=== PATIENT | female | born 1960 | race Caucasian/White ===

== ENCOUNTER 2017-01-04 11:25 | Day surgery (SDC) | payer OTHER ==
[2016-12-30 16:09] VITALS: BMI 21.5
[~2017-01-04 11:25] MED LIST: LACTATED RINGERS 1,000 ML IV SCH
[2017-01-04 11:43] VITALS: TEMP 98
[2017-01-04] MEDS ORDERED: PROPOFOL 10 MG/ML 20 ML VIAL IV ONE (12:00)
--- NOTE | 2017-01-04 12:35 | P.PCN ---
Date of Procedure: 01/04/17 Procedure(s) Performed: Procedure: Colonoscopy and polypectomy. Preoperative diagnosis: Blood in the stools. Postoperative diagnosis: Cecal and distal sigmoid polyps snared but no large polyps or cancer. Mild sigmoid diverticulosis with no evidence of acute diverticulitis or strictures. Low-grade internal hemorrhoids without bleeding at the time of this exam. Preparation: HalfLytely prep. Sedation: Was provided by anesthesia. Brief clinical history: The patient is a 57-year-old female who is referred for this evaluation because of history of abdominal pains and dark stools that tested occult blood positive. The patient has family history of colon cancer in her father and her maternal grandmother. This would be her first colonoscopy. Procedure: With the patient on her left lateral decubitus position and after informed consent and adequate sedation, the perianal area was inspected and it did not show any fissures or fistulas. There were no masses felt on digital rectal examination. The Olympus CFQ 160L video colonoscope was then inserted in the rectum in the usual fashion and advanced to the cecum. There was a small flat polyp in the cecum which was snared and retrieved by suction and there was a small polyp in the distal sigmoid that was also snared and retrieved by suction but there were no large polyps or cancer. The mucosa appeared healthy. Several diverticular orifices were seen scattered in the sigmoid with no evidence of acute diverticulitis or strictures. In the retroflex view in the rectum, low-grade internal hemorrhoids were noted but there was no bleeding. The patient tolerated the procedure well. Plan: The patient was reassured. Discussed dietary measures. Will await pathology results. I anticipate repeating her colonoscopy in 3-5 years. As far as her abdominal pains, dark stools and finding or blood in her stools, it is possible that we could be dealing with an upper GI source of these complaints and findings. Consideration can be given for an upper endoscopy based on her course. She will discuss that with you.
[2017-01-04 12:55] VITALS: BP 145/86; PULSE 91; RESP 18
== END 2017-01-04 13:11 | disposition home or self-care (01) ==
LOC: ORWHC2ENDO 11:25
DX: D12.0 Benign neoplasm of cecum (principal); D12.5 Benign neoplasm of sigmoid colon; K57.30 Diverticulosis of large intestine without perforation or abscess without bleeding; K64.8 Other hemorrhoids; K92.1 Melena; K21.9 Gastro-esophageal reflux disease without esophagitis; I10 Essential (primary) hypertension; I27.2 Other secondary pulmonary hypertension; Z79.899 Other long term (current) drug therapy; Z72.0 Tobacco use
CPT/HCPCS: 88305; 45385; J2704

== ENCOUNTER → 2020-06-07 | Outpatient (CLI) | payer OTHER ==
--- NOTE | 2020-06-07 15:55 | CT ---
EXAMINATION TYPE: CT chest wo con DATE OF EXAM: 06/07/2020 COMPARISON: None HISTORY: chest pain CT DLP: 429 mGycm, Automated exposure control for dose reduction was used. CONTRAST: None TECHNIQUE: Axial images were obtained at 1 mm thick sections at 10 mm intervals. This will limit po rtions of the examination which may not be visualized within the [id number]. Images were obtained in the prone and supine views. FINDINGS: Portion of the thyroid visualized is normal. Tiny densities in the periphery of lateral right apex. Series 8 image 6. A 0.8 cm punctate nodularities within right middle lobe near the major fissure. Series 4 image 24. No enlarged mediastinal or hilar adenopathy is evident. The ascending aorta diameter at the level o f the main pulmonary artery is 3.7 cm. The main pulmonary artery diameter at the bifurcation is 2.9 cm. Dense coronary artery calcification is present. Limited CT sections are obtained through the upper abdomen. Abdomen is essentially unremarkable. No suspicious changes between prone and supine imaging is evident. Portion of the upper abdomen withi n the [id number] is normal. IMPRESSIONS: 1. Couple of punctate densities within the right lung. Follow-up standard CT chest could be performed in 6 months.
== END | disposition home or self-care (01) ==
LOC: RADCTMAIN 09:59
PROVIDERS: ATTEND Internal Medicine
DX: J98.4 Other disorders of lung (principal)
CPT/HCPCS: 71250

== ENCOUNTER → 2020-06-10 | Outpatient (CLI) | payer OTHER ==
[2020-06-10 16:41] LABS: HCT 42.5 % (34.0-46.0); HGB 13.5 gm/dL (11.4-16.0); MCH 31.9 pg (25.0-35.0); MCHC 31.8 g/dL (31.0-37.0); MCV 100.1 fL (80.0-100.0); Mean Platelet Volume 7.1; Platelet Count 218 k/uL (150-450); RBC 4.25 m/uL (3.80-5.40); RDW 12.8 % (11.5-15.5); WBC 6.8 k/uL (3.8-10.6)
[2020-06-11 01:24] LABS: African American GFR (CKD) 109.1 (60.0-200.0); Albumin 4.7 g/dL (3.80-4.90); Albumin/Globulin Ratio 2.14 (1.60-3.17); Anion Gap 11.7 mmol/L (4.00-12.00); BUN/Creat Ratio 17.14 Ratio (12.00-20.00); Calcium 9.4 mg/dL (8.7-10.3); Carbon Dioxide 23.3 mmol/L (21.6-31.8); Globulin 2.2 g/dL (1.6-3.3); Non-African American GFR(CKD) 94.2 (60.0-200.0); Potassium 3.9 mmol/L (3.5-5.5); Total Bilirubin 0.4 mg/dL (0.2-1.2); Total Protein 6.9 g/dL (6.2-8.2)
[2020-06-11 01:32] LABS: T4, Free (Free Thyroxine) 1.2 ng/dL (0.80-1.80)
== END | disposition home or self-care (01) ==
LOC: LABWHC1 15:33
PROVIDERS: ATTEND Internal Medicine
DX: I10 Essential (primary) hypertension (principal); R42 Dizziness and giddiness; R07.9 Chest pain, unspecified
CPT/HCPCS: 36415; 80053; 84439; 84443; 85027

== ENCOUNTER 2020-07-29 11:53 | Day surgery (SDC) | payer OTHER ==
[2020-07-26 15:55] VITALS: BMI 20.2
[2020-07-29] MEDS ORDERED: LACTATED RINGERS 1,000 ML IV SCH (12:05)
[2020-07-29 12:12] VITALS: TEMP 98
[2020-07-29] MEDS ORDERED: LIDOCAINE 1% (10MG/ML) FOR IV START INTRADERMA ONE (12:12)
[2020-07-29] MEDS ORDERED: LACTATED RINGERS 1,000 ML IV ONE (12:12)
[2020-07-29] MEDS ORDERED: LIDOCAINE 1% INJ 10MG/ML (20 ML MDV) ONE (14:00)
[2020-07-29] MEDS ORDERED: PROPOFOL 10 MG/ML 20 ML VIAL IV ONE (14:00)
[2020-07-29] MEDS ORDERED: SODIUM CHLORIDE 0.9% 500 ML 500 ML IV ONE (14:32)
--- NOTE | 2020-07-29 14:42 | P.PCN ---
Date of Procedure: 07/29/20 Description of Procedure: Brief history: Patient is a 60-year-old female presenting for outpatient EGD and colonoscopy for evaluation of dysphagia and history of polyps of the colon. Last colonoscopy was performed in 2017 with polypectomy. She does have a family history of colon cancer in her father. She reports symptoms of epigastric abdominal pain, burping and dysphagia improved on omeprazole therapy, however she does not want to take the medication regularly due to side effects. Procedure performed: Esophagogastroduodenoscopy with biopsy Colonoscopy with polypectomy Estimated blood loss: Minimal. Preoperative diagnosis: Dysphagia, personal history of colon polyps, family history of colon cancer, last colonoscopy 2016 Anesthesia: MAC Procedure: After informed consent was obtained from the patient was brought into the endoscopy unit and IV sedation was administered by anesthesia under continuous monitoring. Initially upper endoscopy was done. The Olympus GF 190 video endoscope was inserted into the mouth and esophagus intubated without any difficulty and was gradually advanced into the stomach and duodenum and carefully examined. The bulb and second part of the duodenum appeared normal. The scope was then withdrawn into the stomach adequately insufflated with air and upon careful examination the antrum and body, cardia and fundus appeared normal, except for a superficial 3 mm nonbleeding antral ulcer which was biopsied. The procedure also taken of the antrum and body with mild superficial erythema suggestive of mild gastritis noted. The scope was then withdrawn into the esophagus. The GE junction was located at 40 cm to the incisors and biopsied. It appeared regular with no erythema erosions or ulcerations. Rest of the esophagus appeared normal. Patient tolerated the procedure well. At this time the patient continued to remain sedation. Initial digital rectal examination was normal. Olympus CF 190 video colonoscope was then inserted into the rectum and gradually advanced to the cecum without any difficulty. Careful examination was performed as the scope was gradually being withdrawn. The prep was excellent. The cecum, ascending colon, transverse colon, descending colon, sigmoid colon and rectum appeared normal. Diminutive polyps measuring 2-3 mm in size removed from the cecum 2, ascending 1, transverse colon 1 and sigmoid colon 1 with cold forcep polypectomy. A few scattered diverticula noted in the sigmoid colon. Low-grade internal hemorrhoids noted. Retroflexion was performed in the rectum and no lesions were noted. Patient tolerated the procedure well. Impression: 1. Superficial nonbleeding antral ulcer, biopsied. Mild gastritis. Biopsies of the duodenum, antrum body and GE junction. 2. 5 diminutive polyps removed with cold forcep polypectomy from the cecum 2, ascending colon, transverse colon and sigmoid colon. Mild sigmoid diverticulosis. Low-grade internal hemorrhoids. Recommendations: Findings of this examination were discussed with the patient as well as her [id number]. Okay to resume diet. Okay to resume medications. Await pathology from biopsies and polypectomy. Patient will be given a 2 month prescription for omeprazole therapy. Would recommend repeat colonoscopy in 3 years for high-risk colon polyps, pending pathology from polypectomies.
[2020-07-29 14:49] VITALS: RESP 20
[2020-07-29 15:10] VITALS: BP 127/81; PULSE 93
== END 2020-07-29 15:17 | disposition home or self-care (01) ==
LOC: ORWHC2ENDO 11:53
PROVIDERS: ATTEND Internal Medicine
DX: Z12.11 Encounter for screening for malignant neoplasm of colon (principal); D12.2 Benign neoplasm of ascending colon; D12.3 Benign neoplasm of transverse colon; D12.5 Benign neoplasm of sigmoid colon; K63.5 Polyp of colon; K29.50 Unspecified chronic gastritis without bleeding; K57.30 Diverticulosis of large intestine without perforation or abscess without bleeding; K25.7 Chronic gastric ulcer without hemorrhage or perforation; K64.8 Other hemorrhoids; F17.210 Nicotine dependence, cigarettes, uncomplicated; Z86.010 Personal history of colon polyps; Z80.0 Family history of malignant neoplasm of digestive organs; Z98.890 Other specified postprocedural states; I10 Essential (primary) hypertension; I73.9 Peripheral vascular disease, unspecified; Z79.899 Other long term (current) drug therapy
CPT/HCPCS: 88305; 45380; 43239; J2001; J2704

== ENCOUNTER → 2020-12-31 | Outpatient (CLI) | payer OTHER ==
--- NOTE | 2020-12-31 12:39 | CT ---
EXAMINATION TYPE: CT ChestAbdPelvis w con DATE OF EXAM: 12/31/2020 COMPARISON: Outside CT abdomen and pelvis December 10, 2020 HISTORY: generalized pain, Malignant neoplasm of peritoneum CT DLP: 1072 mGycm. Automated Exposure Control for Dose Reduction was Utilized. CONTRAST: CT scan of the thorax, abdomen and pelvis is performed with IV Contrast, patient injected with 100 mL of Isovue 300. FINDINGS: LUNGS: The lungs are grossly clear, there is no concerning parenchymal mass or nodule identified. T here is no pleural effusion or pneumothorax seen. The tracheobronchial tree is patent. No suspicious focal consolidation. MEDIASTINUM: There are no greater than 1 cm hilar or mediastinal lymph nodes. No cardiomegaly or pe ricardial effusion is seen. Severe three-vessel coronary calcification is present. OTHER: No additional significant abnormality is seen. LIVER/GB: Gallbladder redemonstrates distended margins. PANCREAS: No significant abnormality is seen. SPLEEN: Somewhat small spleen redemonstrated. ADRENALS: No significant abnormality is seen. KIDNEYS: Left kidney shows areas of cortical diminished enhancement and volume loss on current study. BOWEL: The oral contrast reaches level of the hepatic flexure. No abnormal small or large bowel dilat ation. GENITAL ORGANS: Persistent anteverted uterus extending to right of midline. Scattered bilateral pelvi c phleboliths. LYMPH NODES: No greater than 1cm abdominal or pelvic lymph nodes are appreciated. OSSEOUS STRUCTURES: Underlying levoconvex scoliosis redemonstrated centered at L3 level persistent se paris disc space narrowing L2-L3 and L3-L4 levels. Fthm-mn-[id number] multilevel anterior and lateral sp urring. OTHER: Small amount of abdominal and pelvic ascites is redemonstrated slightly more prominent than pr ior study. There is persistent irregular soft tissue thickening in the left midabdomen with local mas s effect and some adjacent nondependent fluid consistent with biopsy proven peritoneal carcinomatosis . Severe calcified change of aorta extends into branch vessels. IMPRESSION: Small amount of intra-abdominal and pelvic ascites slightly more prominent from outside C T. Redemonstration no peritoneal carcinomatosis with local mass effect. No bowel obstruction. No new or acute findings otherwise seen.
== END ==
LOC: RADCTMAIN 10:26
PROVIDERS: ATTEND Internal Medicine Hematology & Oncology
DX: R18.8 Other ascites (principal)
CPT/HCPCS: 71260; 74177; Q9967

== ENCOUNTER 2021-01-15 09:09 | Day surgery (SDC) | payer OTHER ==
[2021-01-15 10:01] VITALS: TEMP 98.1
[2021-01-15 10:15] LABS: Mean Platelet Volume 7.6; Platelet Count 182 k/uL (150-450)
[2021-01-15 10:20] LABS: INR 0.9 (<1.2); Prothrombin Time 10.1 sec (9.0-12.0)
[2021-01-15 10:51] VITALS: RESP 18
[2021-01-15 11:54] VITALS: BP 131/74; PULSE 92
--- NOTE | 2021-01-15 12:03 | US ---
Ultrasound-guided paracentesis. DATE OF EXAM: 01/15/2021 CLINICAL HISTORY: Ascites The procedure was discussed with the patient. The risks, complications, benefits, and alternatives we re discussed and any questions were answered. Informed consent was obtained. The patient was placed s upine on the ultrasound table and prepped and draped in the usual sterile fashion. All elements of maximal barrier technique were utilized. Under ultrasound guidance, access into the right lower quadrant was obtained, via the paracentesis catheter system and direct ultrasound guidanc e. Approximately 3.8 liters of straw-colored fluid was removed. The patient was stable throughout the pr ocedure and remained stable upon discharge from Department of Radiology. IMPRESSION: Successful paracentesis under ultrasound guidance.
== END 2021-01-15 11:55 | disposition home or self-care (01) ==
LOC: RADPROMAIN 09:09
PROVIDERS: ATTEND Internal Medicine Hematology & Oncology
DX: R18.8 Other ascites (principal)
CPT/HCPCS: 36415; 49083; 85049; 85610

== ENCOUNTER 2021-02-06 10:56 | Day surgery (SDC) | payer OTHER ==
[2021-02-06 12:18] LABS: INR 0.9 (<1.2); Prothrombin Time 10.1 sec (9.0-12.0)
[2021-02-06 12:22] LABS: Mean Platelet Volume 7.9; Platelet Count 136 k/uL (150-450)
[2021-02-06 13:22] VITALS: RESP 18; TEMP 98.6
--- NOTE | 2021-02-06 14:01 | US ---
EXAMINATION TYPE: US venous doppler duplex LE LT DATE OF EXAM: 02/06/2021 1:09 PM COMPARISON: NONE CLINICAL HISTORY: M79.662, R22.42. Swelling left ankle, history of intraperitoneal neoplasm. SIDE PERFORMED: Left TECHNIQUE: The lower extremity deep venous system is examined utilizing real time linear array sonog anayeli with graded compression, doppler sonography and color-flow sonography. VESSELS IMAGED: Common Femoral Vein Deep Femoral Vein Greater Saphenous Vein * Femoral Vein Popliteal Vein Small Saphenous Vein * Proximal Calf Veins (* superficial vessels) Grayscale, color doppler, spectral doppler imaging performed of the deep veins of the left lower extr emity. There is normal flow, compressibility, vascular waveforms. Left Leg: Negative for DVT Results called to Demetrio at 's office at time of exam IMPRESSION: No ultrasound evidence for acute DVT in the left lower extremity.
[2021-02-06 14:11] VITALS: BP 170/76; PULSE 90
--- NOTE | 2021-02-06 15:31 | US ---
EXAMINATION TYPE: US paracentesis abd w/image DATE OF EXAM: 02/06/2021 COMPARISON: NONE HISTORY: Ascites. PROCEDURE: Maximal barrier technique was utilized. The skin overlying a suitable pocket of fluid was localized with ultrasound and the overlying skin was prepped and draped. Ultrasound was utilized with sterile technique. Lidocaine was used for local anesthesia and a skin trang made with a scalpel. Catheter was advanced under direct ultrasound guidance into a suitable pocket of fluid and approximately 5 liters of serous fluid were removed. Catheter was withdrawn and hemostasis achieved. There is no immediate complication; the patient is discharged in stable condition. IMPRESSION: STATUS POST ULTRASOUND GUIDED PARACENTESIS FOR PALLIATION OF ASCITES. THIS PROCEDURE WA S PERFORMED BY THE UNDERSIGNED.
== END 2021-02-06 14:25 | disposition home or self-care (01) ==
LOC: RADPROMAIN 10:56
PROVIDERS: ATTEND Internal Medicine Hematology & Oncology
DX: R18.8 Other ascites (principal)
CPT/HCPCS: 36415; 49083; 85049; 85610

== ENCOUNTER → 2021-02-06 | Outpatient (CLI) | payer OTHER | END | disposition home or self-care (01) | DX: Z53.9 Procedure and treatment not carried out, unspecified reason (principal) ==

== ENCOUNTER 2021-02-14 12:16 | Day surgery (SDC) | payer OTHER ==
[2021-02-14 12:45] LABS: Mean Platelet Volume 7.6; Platelet Count 215 k/uL (150-450)
[2021-02-14 13:14] LABS: INR 0.9 (<1.2)
[2021-02-14 14:06] VITALS: RESP 18
[2021-02-14 15:58] VITALS: BP 128/74; PULSE 86
--- NOTE | 2021-02-14 17:58 | US ---
EXAMINATION TYPE: US paracentesis abd w/image DATE OF EXAM: 02/14/2021 CLINICAL HISTORY: Ascites COMPARISON: 02/06/2021 FURNACE HELPER: Dr. iDana Yanez PROCEDURE: Preprocedure preliminary ultrasound imaging demonstrates large volume ascites. The procedure was discussed with the patient. The risks, complications, benefits, and alternatives we re discussed and any questions were answered. Informed consent was obtained. The patient was placed s upine on the ultrasound table and prepped and draped in the usual sterile fashion. All elements of maximal barrier technique were utilized. Under ultrasound guidance, access into the right lower quadrant was obtained with a 5 Hebrew one-step centesis catheter. Approximately 4.4 liters of clear serous fluid was removed. Catheter was removed and sterile bandage was applied. The patient was stable throughout the procedure and remained stable upon discharge from Department of Radiology. IMPRESSION: Successful ultrasound-guided paracentesis, with removal of 4.4 liters of clear serous fluid.
== END 2021-02-14 15:15 | disposition home or self-care (01) ==
LOC: RADPROMAIN 12:16
PROVIDERS: ATTEND Internal Medicine Hematology & Oncology
DX: R18.8 Other ascites (principal)
CPT/HCPCS: 36415; 49083; 85049; 85610

== ENCOUNTER → 2021-02-24 | Outpatient (CLI) | payer OTHER ==
[2021-02-24 12:03] LABS: African American GFR (CKD) >90 (>60 ml/min/1.73 sqM); Blood Urea Nitrogen 12 mg/dL (7-17); Non-African American GFR(CKD) >90 (>60 ml/min/1.73 sqM)
--- NOTE | 2021-02-24 14:22 | CT ---
EXAMINATION TYPE: CT abdomen pelvis w con DATE OF EXAM: 02/24/2021 HISTORY: Malignant neoplasm of peritoneum, unspecific CT DLP: 553.60mGycm Automated Exposure Control for Dose Reduction was Utilized. CONTRAST: CT scan of the abdomen and pelvis is performed with oral and with IV Contrast, patient injected with 100 ml mL of Isovue 300. COMPARISON: CT December 31, 2020 FINDINGS: LUNG BASES: Coronary artery calcification redemonstrated. LIVER/GB: Surrounding ascites now present. PANCREAS: There is new curvilinear density near the pancreatic tail suspect sutures axial image 29. P rior visualized pancreatic tail bowel shows cut off with heterogeneity. Correlate clinically if there is been interval surgery. Cannot exclude nonenhancement or new small peritoneal mass axial image 32 series 3 at this level though this is less prominent on delayed phased images. SPLEEN: Somewhat small spleen redemonstrated. ADRENALS: No significant abnormality is seen. KIDNEYS: Left kidney redemonstrates areas of cortical thinning and volume loss on current study. BOWEL: The oral contrast reaches level of the proximal transverse colon. No abnormal small or large b owel dilatation. Evaluation of bowel suboptimal due to incomplete opacification of distal and left-si ded bowel loops GENITAL ORGANS: Persistent anteverted uterus extending to right of midline. Scattered bilateral pelvi c phleboliths. New surrounding ascites. Peritoneal thickening and nodular densities in the lateral pe lvis for reference axial image 70 are suspicious. LYMPH NODES: No new greater than 1cm abdominal or pelvic lymph nodes are appreciated. OSSEOUS STRUCTURES: Underlying levoconvex scoliosis redemonstrated centered at L3 level. Persistent s evere disc space narrowing right L2-L3 and L3-L4 levels. Gvfq-gx-ccssnvdh multilevel anterior and lat eral spurring. OTHER: Increasing amount of abdominal and pelvic ascites is redemonstrated . There is persistent irre gular soft tissue thickening in the left midabdomen with local mass effect has slightly more confluen t appearance image 38 series 3, mimicking unopacified bowel loop corresponding to biopsy-proven perit nj carcinomatosis. Severe calcified change of aorta extends into branch vessels. IMPRESSION: Worsening intra-abdominal and pelvic ascites Redemonstration of known peritoneal carcinom atosis with local mass effect. Probable involvement in the pelvic cavity. No bowel obstruction. No ob vious significant change except worsening ascites from most recent CT.
== END | disposition home or self-care (01) ==
LOC: RADCTMAIN 11:21
PROVIDERS: ATTEND Internal Medicine Hematology & Oncology
DX: C48.2 Malignant neoplasm of peritoneum, unspecified (principal); R18.8 Other ascites
CPT/HCPCS: 82565; 84520; 74177; 36415; Q9967

== ENCOUNTER 2021-03-07 11:06 | Day surgery (SDC) | payer OTHER ==
[2021-03-06 14:53] VITALS: BMI 21.2
[~2021-03-07 11:06] MED LIST changes: +DEXAMETHASONE SOD PHOSPHATE 4 MG/ML 1 ML VIAL IV ONE; +HYDROmorphone 0.5 MG/0.5 ML SYRINGE IVP PRN; +LIDOCAINE 1% (10MG/ML) FOR IV START INTRADERMA PRN; +MIDAZOLAM 2 MG/2 ML VIAL IV PRN; +ONDANSETRON 4 MG/2 ML VIAL IVP ONE
--- NOTE | 2021-03-07 15:19 | P.GSHP ---
History of Present Illness H&P Date: 03/07/21 Chief Complaint: Peritoneal cancer 61-year-old female here today for Port-A-Cath placement. Patient being treated with chemotherapy for peritoneal carcinoma. She has frequent paracentesis performed. She underwent 1 earlier this morning. No shortness of breath currently. Past Medical History Past Medical History: Cancer, GERD/Reflux, GI Bleed, Hyperlipidemia, Hypertension Additional Past Medical History / Comment(s): Abdominal pain & weight loss recently, pain under sternum into back, hx diverticulosis, GI bleed 3 yrs ago, hx colon polyps, spots on lungs - monitoring, PERITONEAL CANCER, chemother apy started 01/29. History of Any Multi-Drug Resistant Organisms: None Reported Past Surgical History: Orthopedic Surgery Additional Past Surgical History / Comment(s): Right Carotid Endarterectomy, bilateral knee arthroscopy, right shoulder surgery, Colonoscopy. Past Anesthesia/Blood Transfusion Reactions: No Reported Reaction Past Psychological History: Anxiety Smoking Status: Current every day smoker Past Alcohol Use History: Rare Additional Past Alcohol Use History / Comment(s): Smoker, 1ppd for 40 years. Cutting back, down to 1/2 PPD. Past Drug Use History: None Reported - Past Family History Father Family Medical History: Cancer Additional Family Medical History / Comment(s): Colon cancer. Medications and Allergies Home Medications Medication Instructions Recorded Confirmed Type Metoprolol Succinate (ER) [Toprol 25 mg PO QAM 07/26/20 03/06/21 History Xl] OLANZapine [ZyPREXA] 5 mg PO HS 01/09/21 03/06/21 History Omeprazole 1 tab PO QAM 01/09/21 03/06/21 History Ondansetron [Zofran] 4 mg PO Q12HR PRN 01/09/21 03/06/21 History Calcium Carbonate [Calcium] 600 mg PO DAILY 01/17/21 03/06/21 History LORazepam [Ativan] 0.5 mg PO TID PRN 01/17/21 03/06/21 History Docusate [Colace] 100 mg PO BID PRN 02/06/21 03/06/21 History HYDROcodone/APAP 5-325MG [[place] 1 tab PO Q6HR PRN 02/06/21 03/06/21 History 5-325] Lactulose 10 gm PO BID 02/06/21 03/06/21 History Varenicline [Chantix Starter Pack] 0.5 mg PO DIRECTED 02/06/21 03/06/21 History Allergies Allergy/AdvReac Type Severity Reaction Status Date / Time No Known Allergies Allergy Verified 03/06/21 14:41 Surgical - Exam Physical exam: General: Thin elderly female in no distress HEENT: Normocephalic, sclerae nonicteric Abdomen: Nontender, nondistended Extremities: No edema Neuro: Alert and oriented Assessment and Plan (1) Peritoneal carcinoma Narrative/Plan: Will proceed with Port-A-Cath placement at this time. Risks of bleeding, infection, DVT, pneumothorax, catheter malfunction, anesthesia related complications were discussed. The patient understands and wishes to proceed. Current Visit: Yes Status: Acute Code(s): C48.2 - MALIGNANT NEOPLASM OF PERITONEUM, UNSPECIFIED SNOMED Code(s): 699467861
[2021-03-07] MEDS ORDERED: fentaNYL (PF) 50 MCG/ML 2 ML AMP ONE (15:25)
[2021-03-07] MEDS ORDERED: LIDOCAINE 1% INJ 10MG/ML (20 ML MDV) ONE (15:25)
[2021-03-07] MEDS ORDERED: SODIUM CHLORIDE 0.9% 100 ML BAG ONE (15:25)
[2021-03-07] MEDS ORDERED: MIDAZOLAM 2 MG/2 ML VIAL ONE (15:25)
[2021-03-07] MEDS ORDERED: PROPOFOL 10 MG/ML 20 ML VIAL IV ONE (15:25)
[2021-03-07] MEDS ORDERED: ceFAZolin 1,000 MG VIAL ONE (15:25)
[2021-03-07] MEDS ORDERED: LIDOCAINE 1% INJ 10MG/ML (20 ML MDV) SQ ONE ×2 (15:45)
[2021-03-07] MEDS ORDERED: NALOXONE 0.4 MG/ML 1 ML VIAL IV PRN (16:09)
--- NOTE | 2021-03-07 16:11 | P.OP ---
Date of Procedure: 03/07/21 Procedure(s) Performed: PREOPERATIVE DIAGNOSIS: Peritoneal carcinoma POSTOPERATIVE DIAGNOSIS: Same PROCEDURE: Port-A-Cath placement with fluoroscopic and ultrasound guidance SURGEON: Claudia EBL: Minimal ANESTHESIA: Sedation COMPLICATIONS: None OPERATIVE PROCEDURE: Patient was brought and placed on the operative table in the supine position. The patient was sedated per anesthesia that time. The chest and neck were prepped and draped in usual sterile fashion. The ultrasound probe was used to identify the location of the right internal jugular vein. The skin was localized with lidocaine. The Seldinger needle was advanced into the IJ under ultrasound guidance. The wire was advanced through the needle under fluoroscopic guidance into the superior vena cava. A port pocket was created in the right infraclavicular location. The catheter was tunneled from the wire entrance site to the port pocket. The port was then connected to the catheter. The dilator introducer was threaded over the guidewire. The guidewire and dilator were then removed. The catheter was advanced through the introducer and introducer was then removed. The tip was seen to be in the right atrial junction via fluoroscopy. A picture of the radiograph showing the tip at the radial digital junction was taken. Port was flushed with both saline and a Hep- Lock solution. There was good flow both in and out of the port. The port was sutured in underlying tissues using 3-0 silk sutures. The subcutaneous tissues were reapproximated using 3-0 Vicryl sutures and the skin at both locations using 4-0 Monocryl sutures. Skin glue and sterile dressings then applied. DISPOSITION: Stable to recovery room
[2021-03-07 16:21] VITALS: TEMP 98.5
--- NOTE | 2021-03-07 16:21 | FL ---
Fluoroscopy History: Pain 3 sec fl-1 image
--- NOTE | 2021-03-07 16:30 | XR ---
EXAMINATION TYPE: XR chest 1V confirm line [facility] DATE OF EXAM: 03/07/2021 HISTORY: Post Port A Cath insertion. COMPARISON: None. TECHNIQUE: Single view of the chest is submitted. FINDINGS: Sided Port-A-Cath is demonstrated with its distal tip overlying the SVC. No evidence for pn eumothorax. Demonstrated are scattered senescent parenchymal change. There is no evidence for focal infiltrate. The heart is stable. Hilar and mediastinal structures are within normal limits. Degenerative changes are seen of the dorsal spine. IMPRESSION: 1. Chronic changes without evidence for acute pulmonary disease.
[2021-03-07 16:39] VITALS: RESP 16
[2021-03-07 17:05] VITALS: PULSE 80
[2021-03-07 17:06] VITALS: BP 138/85
== END 2021-03-07 17:18 | disposition home or self-care (01) ==
LOC: OR 11:06
PROVIDERS: ATTEND Surgery
DX: C48.2 Malignant neoplasm of peritoneum, unspecified (principal); K21.9 Gastro-esophageal reflux disease without esophagitis; E78.5 Hyperlipidemia, unspecified; I10 Essential (primary) hypertension; Z92.21 Personal history of antineoplastic chemotherapy; Z86.010 Personal history of colon polyps; F41.9 Anxiety disorder, unspecified; F17.210 Nicotine dependence, cigarettes, uncomplicated; Z79.899 Other long term (current) drug therapy
CPT/HCPCS: 77001; 36561; C1788; J2250; J1100; J2405; J0690; J2001; J3010; J1642; J2704

== ENCOUNTER 2021-03-07 11:44 | Day surgery (SDC) | payer OTHER ==
[~2021-03-07 11:44] MED LIST changes: +ACETAMINOPHEN TAB 500 MG TAB PO PRN; -DEXAMETHASONE SOD PHOSPHATE 4 MG/ML 1 ML VIAL IV ONE; +HEPARIN SODIUM,PORCINE/PF 5,000 UNIT/0.5 ML SYRINGE SQ PRN; -HYDROmorphone 0.5 MG/0.5 ML SYRINGE IVP PRN; -LACTATED RINGERS 1,000 ML IV SCH; -LIDOCAINE 1% (10MG/ML) FOR IV START INTRADERMA PRN; -MIDAZOLAM 2 MG/2 ML VIAL IV PRN; -ONDANSETRON 4 MG/2 ML VIAL IVP ONE
[2021-03-07 12:39] LABS: Mean Platelet Volume 7.5; Platelet Count 179 k/uL (150-450)
[2021-03-07 12:47] LABS: INR 0.9 (<1.2)
[2021-03-07 12:59] LABS: Potassium 5.4 mmol/L (3.5-5.1)
[2021-03-07 13:53] VITALS: RESP 18
[2021-03-07] MEDS: ALBUMIN HUMAN 25% 50 ML in EMPTY BAG 1 BAG IVPB SCH ×3 (14:30→15:18)
[2021-03-07 14:47] VITALS: BP 168/100; PULSE 84
--- NOTE | 2021-03-07 16:10 | US ---
EXAMINATION TYPE: US paracentesis abd w/image DATE OF EXAM: 03/07/2021 COMPARISON: NONE HISTORY: Ascites. PROCEDURE: Maximal barrier technique was utilized. The skin overlying a suitable pocket of fluid was localized with ultrasound and the overlying skin was prepped and draped. Ultrasound was utilized with sterile technique. Lidocaine was used for local anesthesia and a skin trang made with a scalpel. Catheter was advanced under direct ultrasound guidance into a suitable pocket of fluid and approximately 4.1 liter s of serous fluid were removed. Catheter was withdrawn and hemostasis achieved. There is no immedia te complication; the patient is discharged in stable condition. IMPRESSION: STATUS POST ULTRASOUND GUIDED PARACENTESIS FOR PALLIATION OF ASCITES. THIS PROCEDURE WA S PERFORMED BY THE UNDERSIGNED.
== END 2021-03-07 15:10 | disposition home or self-care (01) ==
LOC: RADPROMAIN 11:44
PROVIDERS: ATTEND Internal Medicine Hematology & Oncology
DX: R18.8 Other ascites (principal)
CPT/HCPCS: 80051; 85049; 85610; 36415; 49083; P9047

== ENCOUNTER 2021-03-21 13:04 | Day surgery (SDC) | payer OTHER ==
[2021-03-21 13:32] LABS: Mean Platelet Volume 7.8; Platelet Count 224 k/uL (150-450)
[2021-03-21 13:46] LABS: INR 0.9 (<1.2); Prothrombin Time 9.4 sec (9.0-12.0)
[2021-03-21 14:33] VITALS: RESP 18; TEMP 98.1
[2021-03-21 15:49] VITALS: BP 162/78; PULSE 84
--- NOTE | 2021-03-24 08:52 | US ---
Ultrasound-guided paracentesis. DATE OF EXAM: 03/21/2021 CLINICAL HISTORY: Ascites The procedure was discussed with the patient. The risks, complications, benefits, and alternatives we re discussed and any questions were answered. Informed consent was obtained. The patient was placed s upine on the ultrasound table and prepped and draped in the usual sterile fashion. All elements of maximal barrier technique were utilized. Under ultrasound guidance, access into the right lower quadrant was obtained, via the paracentesis catheter system and direct ultrasound guidanc e. Approximately 3.4 liters of straw-colored fluid was removed. The patient was stable throughout the pr ocedure and remained stable upon discharge from Department of Radiology. IMPRESSION: Successful paracentesis under ultrasound guidance.
== END 2021-03-21 15:20 | disposition home or self-care (01) ==
LOC: RADPROMAIN 13:04
PROVIDERS: ATTEND Internal Medicine Hematology & Oncology
DX: R18.8 Other ascites (principal)
CPT/HCPCS: 36415; 49083; 85049; 85610

== ENCOUNTER 2021-04-04 12:52 | Day surgery (SDC) | payer OTHER ==
[2021-04-04 13:41] LABS: Mean Platelet Volume 7.7; Platelet Count 165 k/uL (150-450)
[2021-04-04 13:46] LABS: Prothrombin Time 10.6 sec (9.0-12.0)
[2021-04-04 14:55] VITALS: PULSE 115; RESP 16
[2021-04-04 15:36] VITALS: BP 133/81
--- NOTE | 2021-04-04 16:18 | US ---
EXAMINATION TYPE: US paracentesis abd w/image DATE OF EXAM: 04/04/2021 COMPARISON: NONE HISTORY: Ascites. PROCEDURE: Maximal barrier technique was utilized. The skin overlying a suitable pocket of fluid was localized with ultrasound and the overlying skin was prepped and draped. Ultrasound was utilized with sterile technique. Lidocaine was used for local anesthesia and a skin trang made with a scalpel. Catheter was advanced under direct ultrasound guidance into a suitable pocket of fluid and approximately 43 liters of serous fluid were removed. Catheter was withdrawn and hemostasis achieved. There is no immediat e complication; the patient is discharged in stable condition. IMPRESSION: STATUS POST ULTRASOUND GUIDED PARACENTESIS FOR PALLIATION OF ASCITES. THIS PROCEDURE WA S PERFORMED BY THE UNDERSIGNED.
== END 2021-04-04 15:25 | disposition home or self-care (01) ==
LOC: RADPROMAIN 12:52
PROVIDERS: ATTEND Internal Medicine Hematology & Oncology
DX: R18.8 Other ascites (principal)
CPT/HCPCS: 85049; 85610; 49083; J1642

== ENCOUNTER 2021-04-06 11:56 | Inpatient (IN) | payer OTHER ==
[2021-04-06] MEDS ORDERED: SODIUM CHLORIDE 0.9% 1,000 ML IV STA (12:20)
[2021-04-06] MEDS ORDERED: ONDANSETRON 4 MG/2 ML VIAL IVP STA (12:20)
[2021-04-06] MEDS ORDERED: HYDROmorphone 1 MG/ML 1 ML SYRINGE IVP STA (12:21)
--- NOTE | 2021-04-06 12:41 | ED ---
General Adult HPI - General Chief complaint: Weakness Stated complaint: Not eating/weak Time Seen by Provider: 04/06/21 12:06 Source: patient, RN notes reviewed, old records reviewed Mode of arrival: wheelchair Limitations: no limitations - History of Present Illness Initial comments: 61-year-old female with stage IV atraumatic cancer presenting for evaluation of abdominal pain nausea vomiting and poor appetite. She is currently on chemotherapy, her last treatment was 2 weeks ago. She's been unable to eat any significant amount of food over that time. She was seen at the cancer center and was given IV fluids earlier this week. She is taking Corona at home with only minimal improvement in her pain. She has not had a bowel movement in several days. She was vomiting but vomiting has subsided and poor appetite and nausea persist. Pain is generalized. She has been having paracentesis performed about every 2 weeks. No fever. - Related Data Home Medications Medication Instructions Recorded Confirmed Metoprolol Succinate (ER) [Toprol 25 mg PO QAM 07/26/20 04/04/21 Xl] OLANZapine [ZyPREXA] 5 mg PO HS 01/09/21 04/04/21 Omeprazole 1 tab PO QAM 01/09/21 04/04/21 Ondansetron [Zofran] 4 mg PO Q12HR PRN 01/09/21 04/04/21 Calcium Carbonate [Calcium] 600 mg PO DAILY 01/17/21 04/04/21 Docusate [Colace] 100 mg PO BID PRN 02/06/21 04/04/21 HYDROcodone/APAP 5-325MG [Corona 1 tab PO Q6HR PRN 02/06/21 04/04/21 5-325] Lactulose 10 gm PO BID 02/06/21 04/04/21 ALPRAZolam [Xanax] 0.25 mg PO Q8H PRN 03/21/21 04/04/21 Allergies Allergy/AdvReac Type Severity Reaction Status Date / Time No Known Allergies Allergy Verified 04/06/21 12:02 Review of Systems ROS Statement: Those systems with pertinent positive or pertinent negative responses have been documented in the HPI. ROS Other: All systems not noted in ROS Statement are negative. Past Medical History Past Medical History: Cancer, GERD/Reflux, GI Bleed, Hyperlipidemia, Hypertension Additional Past Medical History / Comment(s): abdominal pain & weight loss recen tly, & pain under sternum into back, diverticulosis, GI bleed 3 yrs ago, hx. colon polyps, spots on lungs-dr. 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, asites History of Any Multi-Drug Resistant Organisms: None Reported Past Surgical History: Orthopedic Surgery Additional Past Surgical History / Comment(s): carotid endarterectomy rt, arthroscopy santos knees, and rt shoulder, colonoscopy, multi paracentesis, mediport insertion Past Anesthesia/Blood Transfusion Reactions: No Reported Reaction Past Psychological History: Anxiety Smoking Status: Current some day smoker Past Alcohol Use History: Occasional Past Drug Use History: None Reported - Past Family History Father Family Medical History: Cancer Additional Family Medical History / Comment(s): colon cancer General Exam Limitations: no limitations General appearance: alert, in no apparent distress Head exam: Present: atraumatic, normocephalic Eye exam: Present: PERRL. Absent: periorbital swelling, periorbital tenderness ENT exam: Present: mucous membranes dry Neck exam: Present: normal inspection. Absent: tenderness, meningismus Respiratory exam: Present: normal lung sounds bilaterally. Absent: respiratory distress, wheezes Cardiovascular Exam: Present: normal rhythm, tachycardia GI/Abdominal exam: Present: soft, distended, tenderness Extremities exam: Present: normal inspection, normal capillary refill. Absent: pedal edema Neurological exam: Present: alert, oriented X3 Skin exam: Present: warm, dry, intact Course Vital Signs 04/06/21 04/06/21 11:58 13:08 Temperature 97.3 F L Pulse Rate 108 H 121 H Respiratory 18 20 Rate Blood Pressure 111/80 96/85 O2 Sat by Pulse 97 92 L Oximetry EKG Findings - EKG Comments: EKG Findings:: EKG: Sinus tachycardia, low voltage, rate of 129, NV interval 132, QRS duration 88, QTC 471, suspect ST segment depression in the lateral precordial leads. No ST segment elevation. Medical Decision Making - Medical Decision Making 61-year-old female with nausea vomiting, poor appetite, abdominal pain, dehydration. Patient has stage IV pancreatic cancer. She has not been eating well for the past 2 weeks. She has tried abnormalities, including hypokalemia, hyponatremia, hypomagnesemia. Lites are replaced the emergency department. She is dehydrated. She has a leukocytosis, uncertain if this is reactive or associated with acute infection. Chest x-ray and urinalysis are pending. She will be admitted for symptom control. Case discussed with Dr. Montoya who will admit. Oncology placed on consult. - Lab Data Result diagrams: 04/06/21 13:00 04/06/21 13:00 Lab Results 04/06/21 04/06/21 04/06/21 Range/Units 13:00 13:00 13:00 WBC 18.1 H (3.8-10.6) k/uL RBC 3.70 L (3.80-5.40) m/uL Hgb 11.8 (11.4-16.0) gm/dL Hct 37.1 (34.0-46.0) % MCV 100.3 H (80.0-100.0) fL MCH 31.9 (25.0-35.0) pg MCHC 31.8 (31.0-37.0) g/dL RDW 17.1 H (11.5-15.5) % Plt Count 192 (150-450) k/uL MPV 7.9 Neutrophils % 93 % Lymphocytes % 2 % Monocytes % 3 % Eosinophils % 0 % Basophils % 0 % Neutrophils # 16.9 H (1.3-7.7) k/uL Lymphocytes # 0.4 L (1.0-4.8) k/uL Monocytes # 0.6 (0-1.0) k/uL Eosinophils # 0.0 (0-0.7) k/uL Basophils # 0.0 (0-0.2) k/uL Anisocytosis Slight Macrocytosis Slight PT 10.7 (9.0-12.0) sec INR 1.0 (<1.2) APTT 22.1 (22.0-30.0) sec Sodium 131 L (137-145) mmol/L Potassium 3.0 L (3.5-5.1) mmol/L Chloride 97 L (98-107) mmol/L Carbon Dioxide 18 L (22-30) mmol/L Anion Gap 16 mmol/L BUN 15 (7-17) mg/dL Creatinine 0.74 (0.52-1.04) mg/dL Est GFR (CKD-EPI)AfAm >90 (>60 ml/min/1.73 sqM) Est GFR (CKD-EPI)NonAf 88 (>60 ml/min/1.73 sqM) Glucose 153 H (74-99) mg/dL Plasma Lactic Acid Robert (0.7-2.0) mmol/L Calcium 7.9 L (8.4-10.2) mg/dL Magnesium 1.5 L (1.6-2.3) mg/dL Total Bilirubin 0.3 (0.2-1.3) mg/dL AST 18 (14-36) U/L ALT 9 (4-34) U/L Alkaline Phosphatase 201 H (38-126) U/L Total Protein 5.1 L (6.3-8.2) g/dL Albumin 2.6 L (3.5-5.0) g/dL 04/06/21 Range/Units 13:00 WBC (3.8-10.6) k/uL RBC (3.80-5.40) m/uL Hgb (11.4-16.0) gm/dL Hct (34.0-46.0) % MCV (80.0-100.0) fL MCH (25.0-35.0) pg MCHC (31.0-37.0) g/dL RDW (11.5-15.5) % Plt Count (150-450) k/uL MPV Neutrophils % % Lymphocytes % % Monocytes % % Eosinophils % % Basophils % % Neutrophils # (1.3-7.7) k/uL Lymphocytes # (1.0-4.8) k/uL Monocytes # (0-1.0) k/uL Eosinophils # (0-0.7) k/uL Basophils # (0-0.2) k/uL Anisocytosis Macrocytosis PT (9.0-12.0) sec INR (<1.2) APTT (22.0-30.0) sec Sodium (137-145) mmol/L Potassium (3.5-5.1) mmol/L Chloride (98-107) mmol/L Carbon Dioxide (22-30) mmol/L Anion Gap mmol/L BUN (7-17) mg/dL Creatinine (0.52-1.04) mg/dL Est GFR (CKD-EPI)AfAm (>60 ml/min/1.73 sqM) Est GFR (CKD-EPI)NonAf (>60 ml/min/1.73 sqM) Glucose (74-99) mg/dL Plasma Lactic Acid Robert 1.2 (0.7-2.0) mmol/L Calcium (8.4-10.2) mg/dL Magnesium (1.6-2.3) mg/dL Total Bilirubin (0.2-1.3) mg/dL AST (14-36) U/L ALT (4-34) U/L Alkaline Phosphatase (38-126) U/L Total Protein (6.3-8.2) g/dL Albumin (3.5-5.0) g/dL Disposition Clinical Impression: Hyponatremia, Hypokalemia, Dehydration, Hypomagnesemia Disposition: ADMITTED IP TO THIS [facility] Condition: Stable Is patient prescribed a controlled substance at d/c from ED?: No Referrals: Oscar Pereira MD [Primary Care Provider] - 1-2 days Decision to Admit Reason: Admit from EC Decision Date: 04/06/21 Decision Time: 14:00
[2021-04-06 13:29] LABS: ALT 9 U/L (4-34); AST 18 U/L (14-36); African American GFR (CKD) >90 (>60 ml/min/1.73 sqM); Albumin 2.6 g/dL (3.5-5.0); Alkaline Phosphatase 201 U/L (38-126); Anion Gap 16 mmol/L; Blood Urea Nitrogen 15 mg/dL (7-17); Calcium 7.9 mg/dL (8.4-10.2); Carbon Dioxide 18 mmol/L (22-30); Chloride 97 mmol/L (98-107); Glucose 153 mg/dL (74-99); Magnesium 1.5 mg/dL (1.6-2.3); Non-African American GFR(CKD) 88 (>60 ml/min/1.73 sqM); Sodium 131 mmol/L (137-145); Total Bilirubin 0.3 mg/dL (0.2-1.3); Total Protein 5.1 g/dL (6.3-8.2)
[2021-04-06 13:31] LABS: Partial Thromboplastin Time 22.1 sec (22.0-30.0); Prothrombin Time 10.7 sec (9.0-12.0)
[2021-04-06 13:35] LABS: Anisocytosis Slight; Basophils % (A) 0 %; Eosinophils % (A) 0 %; HCT 37.1 % (34.0-46.0); HGB 11.8 gm/dL (11.4-16.0); Lymphocytes # (A) 0.4 k/uL (1.0-4.8); Lymphocytes % (A) 2 %; MCH 31.9 pg (25.0-35.0); MCHC 31.8 g/dL (31.0-37.0); MCV 100.3 fL (80.0-100.0); Macrocytosis Slight; Mean Platelet Volume 7.9; Monocytes # (A) 0.6 k/uL (0-1.0); Monocytes % (A) 3 %; Neutrophils # (A) 16.9 k/uL (1.3-7.7); Neutrophils % (A) 93 %; Platelet Count 192 k/uL (150-450); RDW 17.1 % (11.5-15.5); WBC 18.1 k/uL (3.8-10.6)
[2021-04-06] MEDS ORDERED: NALOXONE 0.4 MG/ML 1 ML VIAL IV PRN (13:54)
[2021-04-06] MEDS ORDERED: HYDROmorphone 0.5 MG/0.5 ML SYRINGE IVP PRN (13:54)
[2021-04-06] MEDS ORDERED: ACETAMINOPHEN TAB 325 MG TAB PO PRN (13:54)
[2021-04-06] MEDS: POTASSIUM CHLORIDE 10 MEQ in WATER FOR INJECTION 1 100ML.BAG IVPB SCH ×4 (14:40→20:26)
[2021-04-06] MEDS: MAGNESIUM SULFATE-D5W PMX 1 GM in DEXTROSE/WATER 1 100ML.BAG IVPB SCH ×2 (14:40→15:47)
--- NOTE | 2021-04-06 14:51 | XR ---
EXAMINATION TYPE: XR chest 2V DATE OF EXAM: 04/06/2021 COMPARISON: 03/07/2021 HISTORY: Line placement Weakness TECHNIQUE: FINDINGS: Heart and mediastinum are normal. Lungs are clear. Diaphragm is normal. There is right cent ral venous catheter with tip in the superior vena cava. There are chest leads. Bony thorax is intact. There is slight widening of the left AC joint space. There is old left humeral neck fracture. IMPRESSION: No active cardiopulmonary disease. Normal heart. No change.
[2021-04-06] MEDS ORDERED: D5-0.9% NACL WITH KCL 20 MEQ/L 1,000 ML IV SCH (15:00)
[2021-04-06] MEDS ORDERED: ONDANSETRON 4 MG TAB PO PRN (15:22)
[2021-04-06] MEDS ORDERED: ALPRAZolam 0.25 MG TAB PO PRN (15:22)
[2021-04-06] MEDS ORDERED: HYDROcodone/APAP 5-325MG 1 EACH TAB PO PRN (15:24)
[2021-04-06] MEDS ORDERED: Magnesium Replacement Protocol 1 EACH MISC MISCELLANE PRN (15:25)
[2021-04-06] MEDS ORDERED: TEMAZEPAM 15 MG CAP PO PRN (15:25)
[2021-04-06] MEDS ORDERED: Potassium Replacement Protocol 1 EACH MISC MISCELLANE PRN (15:25)
[2021-04-06 16:28] LABS: ALT 7 U/L (4-34); AST 17 U/L (14-36); African American GFR (CKD) >90 (>60 ml/min/1.73 sqM); Albumin 2.4 g/dL (3.5-5.0); Alkaline Phosphatase 183 U/L (38-126); Anion Gap 13 mmol/L; Blood Urea Nitrogen 15 mg/dL (7-17); Calcium 7.4 mg/dL (8.4-10.2); Carbon Dioxide 19 mmol/L (22-30); Chloride 98 mmol/L (98-107); Globulin 2.4 g/dL; Glucose 141 mg/dL (74-99); Non-African American GFR(CKD) >90 (>60 ml/min/1.73 sqM); Potassium 3.2 mmol/L (3.5-5.1); Sodium 130 mmol/L (137-145); Total Bilirubin 0.2 mg/dL (0.2-1.3); Total Protein 4.8 g/dL (6.3-8.2)
--- NOTE | 2021-04-06 17:12 | HP ---
HISTORY AND PHYSICAL DATE OF SERVICE: 04/06/2021 CHIEF COMPLAINTS: Weakness and inability to eat. HISTORY OF PRESENT ILLNESS: This 61-year-old woman with a past medical history of multiple medical problems including pancreatic cancer, GERD, hypertension, hyperlipidemia, being followed by Dr. Toure in the outpatient setting is receiving chemotherapy. The patient has received 3 cycles of chemotherapy. After the chemotherapy last time the patient became extremely sick, unable to keep anything down. The patient got progressively weak and emaciated and the family is debating for the continuation of the chemotherapy. The patient was taken to the ER with complaints of significant weakness. The patient is seen in the Cancer Center, given IV fluids earlier this week. The patient does not have a bowel movement for the last couple of days. The patient was found to have sodium 139, potassium 3. Patient may be dehydrated. White count elevated to 18. Patient admitted for further evaluation and treatment. There is no history of fever, rigors. No headache. loss of consciousness or seizures. The patient is complaining of severe pain in the back also diffusely. PAST MEDICAL HISTORY: History of GERD, history of hypertension, hyperlipidemia, history of abdominal pain, history of anxiety. MEDICATIONS: Medications prior to admission include home medications are Zofran, omeprazole, Zyprexa, Toprol-XL, [place], Xanax. ALLERGIES: None. FAMILY HISTORY: History of colon cancer in the family. SOCIAL HISTORY: History of alcohol intake and continued smoking. REVIEW OF SYSTEMS: ENT No history of diminished hearing or vision. CARDIOVASCULAR No angina or palpitations. RESPIRATORY As mentioned earlier. GI As mentioned earlier. No dysuria or hematuria. NERVOUS No numbness or weakness. ALLERGY/IMMUNOLOGY No asthma or hayfever. MUSCULOSKELETAL As mentioned earlier. HEMATOLOGY/ONCOLOGY As mentioned earlier. ENDOCRINE No history of diabetes or hypothyroidism. CONSTITUTIONAL As mentioned earlier. DERMATOLOGY Negative. RHEUMATOLOGY Negative, PSYCHIATRY As mentioned earlier. PHYSICAL EXAMINATION: Pulse 107, blood pressure 120/86, respiration 18, temperature 97.9, pulse ox 94% on room air. HEENT: Conjunctivae normal. Oral mucosa dry. NECK: No jugular venous distention. No lymph node enlargement. CARDIOVASCULAR: S1, S2, muffled. No S3, no S4, RESPIRATORY: Diminished breath sounds at the bases. A few scattered rhonchi. ABDOMEN: Soft. Mild diffuse distention. Mild diffuse tenderness also present, especially the left side of the abdomen. No guarding, no rigidity. No mass palpable. LEGS: No edema, no swelling. NERVOUS SYSTEM: Higher functions mentioned earlier. Moves all four limbs. Mild diffuse weakness. LYMPHATICS: No lymph node in neck or axilla. SKIN: No rash. JOINTS: No active deforming arthropathy. LAB: WBC 18.2, hemoglobin 7.8, sodium 130, potassium 3. ASSESSMENT: 1. Stage IV pancreatic cancer with metastases, on chemotherapy. 2. Severe dehydration and weakness. 3. Increased WBC, rule out sepsis. 4. Hypernatremia. 5. Hypokalemia. 6. Hypomagnesemia. 7. Hypoalbuminemia with severe protein calorie malnutrition with body mass index of 18.9. 8. History of gastroesophageal reflux disease. 9. History of gastrointestinal bleed. 10.Hypertension. 11.Hyperlipidemia. 12.History of abdominal pain and weight loss. 13.History of chronic polyps. 14.History of anxiety. 15.History of nicotine dependence, continued, ongoing. 16.FULL CODE. RECOMMENDATIONS AND DISCUSSION: In this 61-year-old woman who presented with multiple complex medical issues, we will monitor the patient closely, continue the current medications, continue symptomatic treatment. Pain management. Otherwise, I would also recommend empiric antibiotics. PT OT evaluation. Consult Dr. Toure. Guarded prognosis because of multiple complex medical issues. Further recommendations to follow. MMODL / IJN: [id number] /
[2021-04-06] MEDS: PANTOPRAZOLE 40 MG TABLET PO SCH (17:57)
[2021-04-06] MEDS: CEFEPIME 2 GM in SODIUM CHLORIDE 0.9% 100 ML IVPB SCH ×2 (17:58→23:40)
[2021-04-06 20:44] LABS: Appearance,Urine Cloudy (Clear); Bilirubin,Urine 1+ (Negative); Blood,Urine Negative (Negative); Color,Urine Yellow; Glucose,Urine (UA) Negative (Negative); Hyaline Casts,Urine 19 /lpf (0-2); Ketones,Urine 2+ (Negative); Leukocyte Esterase,Urine Negative (Negative); Mucus,Urine Few /hpf; Nitrite,Urine Negative (Negative); Protein,Urine 1+ (Negative); RBC,Urine 1 /hpf (0-5); Specific Gravity,Urine 1.025 (1.001-1.035); Squamous Epithelial Cell,Urine 6 /hpf (0-4); WBC,Urine 3 /hpf (0-5)
[2021-04-06] MEDS: HYDROmorphone 1 MG/ML 1 ML SYRINGE IVP PRN (21:38)
[2021-04-06] MEDS: OLANZapine 5 MG TAB PO SCH (21:40)
[2021-04-06] MEDS: 0.9% NACL WITH KCL 40 MEQ/L 1,000 ML IV SCH (22:12)
[2021-04-07] MEDS: HYDROmorphone 1 MG/ML 1 ML SYRINGE IVP PRN ×6 (01:20→23:40)
[2021-04-07 06:30] LABS: Anisocytosis Slight; Basophils % (A) 0 %; Eosinophils % (A) 0 %; HCT 34.2 % (34.0-46.0); HGB 11.1 gm/dL (11.4-16.0); Lymphocytes # (A) 0.6 k/uL (1.0-4.8); Lymphocytes % (A) 5 %; MCH 33.3 pg (25.0-35.0); MCHC 32.5 g/dL (31.0-37.0); MCV 102.4 fL (80.0-100.0); Macrocytosis Moderate; Mean Platelet Volume 8.9; Monocytes # (A) 0.7 k/uL (0-1.0); Monocytes % (A) 6 %; Neutrophils # (A) 10.2 k/uL (1.3-7.7); Neutrophils % (A) 87 %; Platelet Count 162 k/uL (150-450); RBC 3.34 m/uL (3.80-5.40); RDW 17.1 % (11.5-15.5); WBC 11.7 k/uL (3.8-10.6)
[2021-04-07] MEDS: CEFEPIME 2 GM in SODIUM CHLORIDE 0.9% 100 ML IVPB SCH ×3 (08:03→23:28)
[2021-04-07] MEDS: PANTOPRAZOLE 40 MG TABLET PO SCH (08:04)
[2021-04-07] MEDS: ENOXAPARIN 40 MG/0.4 ML SYRINGE SQ SCH (08:04)
[2021-04-07 09:41] LABS: Anion Gap 14.1 mmol/L (4.00-12.00); BUN/Creat Ratio 31.67 Ratio (12.00-20.00); Calcium 7.2 mg/dL (8.7-10.3); Carbon Dioxide 18.9 mmol/L (21.6-31.8); Magnesium 1.7 mg/dL (1.5-2.4); Non-African American GFR(CKD) 98.4 (60.0-200.0); Potassium 3.7 mmol/L (3.5-5.5)
[2021-04-07] MEDS: 0.9% NACL WITH KCL 40 MEQ/L 1,000 ML IV SCH ×2 (11:17→22:20)
[2021-04-07 13:30] VITALS: BMI 18.8
[2021-04-07] MEDS: IOPAMIDOL CONTRAST (ORAL USE) VIAL PO PRN ×2 (14:24→15:20)
--- NOTE | 2021-04-07 16:41 | CT ---
EXAMINATION TYPE: CT abdomen pelvis wo/w con DATE OF EXAM: 04/07/2021 COMPARISON: 02/24/2021 HISTORY: 61-year-old female Left lower quadrant abdominal pain and bilateral flank pain. History of p ancreatic cancer. TECHNIQUE: Contiguous axial scanning of the abdomen and pelvis following before and after administrat ion of 100 ml Isovue 300 IV contrast. Delayed images through the kidneys and coronal/sagittal recons tructions performed. CT DLP: 857.1 mGycm Automated exposure control for dose reduction was used. FINDINGS: Heart normal size without pericardial effusion. Extensive three-vessel coronary artery calcifications are present. Lung bases clear without pleural effusion. Moderate atherosclerotic calcifications lower descending thoracic aorta with ectasia up to 2.9 cm. Tiny hiatal hernia. There may be severe stenoses at the origin of both celiac axis and SMA. Moderate to severe narrowing mid to distal abdominal aorta and aortic bifurcation as well as the proximal right common iliac arter y. Small hypodensities in the periphery of the liver. Borderline gallbladder distention up to 4.1 cm pro bably due to fasting state. Portal venous system is patent. Adrenal glands, right kidney, and spleen within normal limits. The head of the pancreas appears atro phic Left renal artery is no longer well seen and there is delayed enhancement of the left kidney likely d ue to a delay significant renal artery stenosis. Redemonstrated moderate abdominal ascites. Pelvic peritoneal implants with nodular thickening of the peritoneal lining redemonstrated without significant change. Ascending colon is dilated up to 7.9 cm versus 5.7 cm, previously. Descending colon is distended up t o 5.8 cm. The right-sided colon is filled with liquid stool. Circumferential wall thickening of the r ectum is new. Prominent fluid-filled small bowel loops and some possible mildly thickened small bowel loops through out the abdomen and pelvis. Scattered small bowel loops show segmental dilatation up to 4.2 cm in the upper abdomen and also central mid abdomen. Other loops in the right mid abdomen measuring up to 3.6 cm. No pneumatosis or free air is identified. Bladder partially urine distended. Multiple pelvic phlebolith. Bones: Mild to moderate degenerative change at the hips. Hypertrophic facet arthropathy mid to lower lumbar spine. Degenerated S-shaped scoliosis of the lumbar spine. IMPRESSION: 1. AREAS OF MODERATE TO SEVERE ATHEROSCLEROTIC CHANGE IN THE ABDOMINAL AORTA. THERE MAY BE SEVERE HERMELINDA NOSES OF BOTH CELIAC AXIS AND SMA ORIGINS. GIVEN THE NEW SEGMENTAL SMALL BOWEL DISTENTION WITH SCATTE RED WALL THICKENING (DILATATION UP TO 4.2 CM) AND NEW DISTENTION OF THE COLON WELL MEASURING UP TO 7.9 CM, CONSIDER A GENERALIZED ILEUS OR ENTERITIS. CORRELATE WITH LACTIC ACID LEVELS TO EXCLUDE MESE NTERIC ISCHEMIA. NO PNEUMATOSIS OR FREE AIR AT THIS TIME. 2. THE LEFT RENAL ARTERY IS NO LONGER WELL SEEN AND THERE IS DELAYED ENHANCEMENT OF THE LEFT KIDNEY. FINDINGS COMPATIBLE WITH THE DEVELOPMENT OF A SEVERE, CLINICALLY SIGNIFICANT LEFT RENAL ARTERY STENOS IS. 3. KNOWN MODERATE ASCITES AND PELVIC PERITONEAL CARCINOMATOSIS. UNCHANGED SMALL HYPODENSITIES IN THE PERIPHERY OF THE LIVER COULD REFLECT ADDITIONAL PERITONEAL STUDDING. 4. SEVERE ATHEROSCLEROTIC STENOSIS AT THE AORTIC BIFURCATION AND PROXIMAL RIGHT COMMON ILIAC ARTERY.
--- NOTE | 2021-04-07 17:29 | PN ---
PROGRESS NOTE DATE OF SERVICE: 04/07/2021. INTERVAL HISTORY: This 61-year-old woman who was admitted with stage IV pancreatic cancer, suspected to have dehydration, as well as possible sepsis. The patient is being seen and treated symptomatically. CT scan of the abdomen and pelvis has been ordered. No chest pain. No palpitations. No fever. On exam, the patient is extremely emaciated. PHYSICAL EXAMINATION: Alert and oriented x2, pulse 118, blood pressure 106/76, respiration 20, temperature 97.2, pulse ox 98% on room air. Normal neck. Cardiac: S1, S2 muffled. No S3, no S4. Respiratory: Diminished breath sounds at the bases, a few scattered rhonchi. Abdomen: Soft, mild diffuse tenderness. Legs: No edema, no swelling. LAB STUDIES: WBC 11.2, hemoglobin 11.1, sodium 134. ASSESSMENT: 1. Stage II pancreatic cancer with metastasis on chemotherapy. 2. CVD dehydration and weakness present on admission. 3. Increased WBC, possible sepsis present on admission. 4. Hyponatremia. 5. Hypokalemia. 6. Hypomagnesemia. 7. Hypoalbuminemia with severe protein calorie malnutrition with body mass index of 18.9. 8. History of gastroesophageal reflux disease. 9. History of gastrointestinal bleed. 10.Hypertension. 11.Hyperlipidemia. 12.History of abdominal pain, weight loss. 13.History of chronic polyps. 14.History of anxiety. 15.History of nicotine dependence continued ongoing. 16.FULL CODE. RECOMMENDATIONS AND DISCUSSION: I recommend to continue current management and treatment and continue the antibiotics. CT scan abdomen pelvis. Closely follow with Hematology, Oncology. The patient is currently NO CODE. Guarded prognosis. Further recommendations to follow. MMODL / IJN: [id number] /
[2021-04-07] MEDS: chlorproMAZINE 25 MG TAB PO PRN (17:44)
--- NOTE | 2021-04-07 18:15 | P.CONS ---
History of Present Illness - Reason for Consult Consult date: 04/07/21 pancreatic ca Requesting physician: Sylvain Lui - Chief Complaint intractable N,V - History of Present Illness Mrs. Concepcion is a very pleasant 61-year-old female who was initially seen in consult at [facility]. She presented with progressive ab dominal pain, present for about [address] AP revealed a moderate amount of pelvic and a small amount of abdominal ascites as well as peritoneal carcinomatosis. CT-guided biopsy and peritoneal cytology both revealed adenocarcinoma. Seen by GI in July 2020 EGD and colonoscopy polyps but no other findings. Patient was started January 2021 on carboplatin and Taxol chemotherapy, intending to treat malignancy as a PAWN SHOP KEEPER primary. She had [address] cans showing no improvements. Her case was discussed at [facility] tumor board. Both GI as well as PAWN SHOP KEEPER reviewed case. Recommendation was to treat as a potential primary pancreatic malignancy. She was started on modified full fair Lopez with G-CSF, she is status post first cycle 03/26/21. Currently pending Caris studies, PDL 1 and guardant 360 liquid biopsy. Patient presented to the emergency department with complaints of inability to eat since treatment about 2 weeks ago. When she was in the office she said that she had not 84 days, severe vomiting and diarrhea but she had had a bowel movement that was soft that morning, on the last time she vomited was the previous day, she had not been using anti-emetics, she did not ever pain meds the prescription was still sitting at the pharmacy. She was given fluids and supportive meds in the office and felt a little better. She states her last bowel movement was "bile", no bowel movement today, abdominal pain is persistent, cannot lay on her left side, she was vomiting but no vomiting today. Review of Systems 10 point review of systems is negative except as stated in HPI Past Medical History Past Medical History: Cancer, GERD/Reflux, GI Bleed, Hyperlipidemia, Hypertension Additional Past Medical History / Comment(s): abdominal pain & weight loss recently, & pain under sternum into back, diverticulosis, GI bleed 3 yrs ago, hx. colon polyps, spots on lungs-dr. 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, asites History of Any Multi-Drug Resistant Organisms: None Reported Past Surgical History: Orthopedic Surgery Additional Past Surgical History / Comment(s): carotid endarterectomy rt, arthroscopy santos knees, and rt shoulder, colonoscopy, multi paracentesis, mediport insertion Past Anesthesia/Blood Transfusion Reactions: No Reported Reaction Past Psychological History: Anxiety Smoking Status: Current some day smoker Past Alcohol Use History: Occasional Additional Past Alcohol Use History / Comment(s): smoker 1ppd 40 years Past Drug Use History: None Reported - Past Family History Father Family Medical History: Cancer Additional Family Medical History / Comment(s): colon cancer Medications and Allergies Home Medications Medication Instructions Recorded Confirmed Type Metoprolol Succinate (ER) [Toprol 25 mg PO DAILY 07/26/20 04/06/21 History Xl] OLANZapine [ZyPREXA] 5 mg PO HS 01/09/21 04/06/21 History Omeprazole 20 mg PO DAILY 01/09/21 04/06/21 History Ondansetron [Zofran] 4 mg PO Q4H PRN 01/09/21 04/06/21 History HYDROcodone/APAP 5-325MG [[place] 1 tab PO Q6HR PRN 02/06/21 04/06/21 History 5-325] ALPRAZolam [Xanax] 0.5 mg PO TID PRN 04/06/21 04/06/21 History Allergies Allergy/AdvReac Type Severity Reaction Status Date / Time No Known Allergies Allergy Verified 04/06/21 14:23 Physical Exam Vitals: Vital Signs Temp Pulse Pulse Resp BP BP Pulse Ox 04/07/21 04:16 97.8 F 114 H 20 103/75 99 04/06/21 19:30 97.7 F 120 H 20 104/75 97 04/06/21 17:41 98.3 F 112 H 17 95/75 96 04/06/21 15:57 111 H 18 104/79 94 L 04/06/21 14:31 97.9 F 107 H 18 102/86 94 L 04/06/21 13:08 121 H 20 96/85 92 L 04/06/21 11:58 97.3 F L 108 H 18 111/80 97 Intake and Output 04/06/21 04/07/21 04/07/21 22:59 06:59 14:59 Intake Total 500 100 Balance 500 100 Intake: Intake, IV Titration 400 Amount Magnesium Sulfate-D5w Pmx 200 1 gm In Dextrose/Water 1 100ml.bag @ 100 mls/hr IVPB Q1H [facility] Rx#: [id number] Potassium Chloride 10 meq 200 In Water For Injection 1 100ml.bag @ 100 mls/hr IVPB Q1HR [facility] Rx#: [id number] Oral 100 100 Other: # Voids 1 1 Weight 56.245 kg - Constitutional General appearance: cooperative, mild distress, thin - EENT Eyes: anicteric sclerae, EOMI ENT: hearing grossly normal, normal oropharynx - Neck Neck: no lymphadenopathy - Respiratory Respiratory: bilateral: CTA (diminished bases) - Cardiovascular mild tachycardia, 110s Heart sounds: normal: S1, S2 Abnormal Heart Sounds: no systolic murmur, no diastolic murmur, no rub, no S3 Gallop, no S4 Gallop, no click, no other - Gastrointestinal distant bowel sounds General gastrointestinal: distended, soft, tenderness - Integumentary Integumentary: normal - Neurologic Neurologic: CNII-XII intact - Musculoskeletal Musculoskeletal: strength equal bilaterally - Psychiatric Psychiatric: A&O x's 3, appropriate affect, intact judgment & insight Results CBC & Chem 7: 04/07/21 04:46 04/07/21 04:46 Labs: Abnormal Lab Results - Last 24 Hours (Table) 04/06/21 04/06/21 04/06/21 Range/Units 13:00 13:00 13:00 WBC 18.1 H (3.8-10.6) k/uL RBC 3.70 L (3.80-5.40) m/uL Hgb (11.4-16.0) gm/dL MCV 100.3 H (80.0-100.0) fL RDW 17.1 H (11.5-15.5) % Neutrophils # 16.9 H (1.3-7.7) k/uL Lymphocytes # 0.4 L (1.0-4.8) k/uL Sodium 131 L (137-145) mmol/L Potassium 3.0 L (3.5-5.1) mmol/L Chloride 97 L (98-107) mmol/L Carbon Dioxide 18 L (22-30) mmol/L Glucose 153 H (74-99) mg/dL Calcium 7.9 L (8.4-10.2) mg/dL Magnesium 1.5 L (1.6-2.3) mg/dL Alkaline Phosphatase 201 H (38-126) U/L Total Protein 5.1 L (6.3-8.2) g/dL Albumin 2.6 L (3.5-5.0) g/dL Urine Appearance Cloudy H (Clear) Urine Protein 1+ H (Negative) Urine Ketones 2+ H (Negative) Urine Bilirubin 1+ H (Negative) Ur Squamous Epith Cells 6 H (0-4) /hpf Hyaline Casts 19 H (0-2) /lpf Urine Mucus Few H (None) /hpf 04/06/21 04/07/21 Range/Units 15:45 04:46 WBC 11.7 H (3.8-10.6) k/uL RBC 3.34 L (3.80-5.40) m/uL Hgb 11.1 L (11.4-16.0) gm/dL MCV 102.4 H (80.0-100.0) fL RDW 17.1 H (11.5-15.5) % Neutrophils # 10.2 H (1.3-7.7) k/uL Lymphocytes # 0.6 L (1.0-4.8) k/uL Sodium 130 L (137-145) mmol/L Potassium 3.2 L (3.5-5.1) mmol/L Chloride (98-107) mmol/L Carbon Dioxide 19 L (22-30) mmol/L Glucose 141 H (74-99) mg/dL Calcium 7.4 L (8.4-10.2) mg/dL Magnesium (1.6-2.3) mg/dL Alkaline Phosphatase 183 H (38-126) U/L Total Protein 4.8 L (6.3-8.2) g/dL Albumin 2.4 L (3.5-5.0) g/dL Urine Appearance (Clear) Urine Protein (Negative) Urine Ketones (Negative) Urine Bilirubin (Negative) Ur Squamous Epith Cells (0-4) /hpf Hyaline Casts (0-2) /lpf Urine Mucus (None) /hpf CT scan - abdomen: report reviewed CT scan - pelvis: report reviewed Assessment and Plan (1) Intractable nausea and vomiting Current Visit: Yes Status: Acute Priority: High Code(s): R11.2 - NAUSEA WITH VOMITING, UNSPECIFIED SNOMED Code(s): 483784841 (2) Abdominal pain Current Visit: Yes Status: Acute Priority: High Code(s): R10.9 - UNSPECIFIED ABDOMINAL PAIN SNOMED Code(s): 00379157 (3) Pancreatic cancer Current Visit: Yes Status: Acute Code(s): C25.9 - MALIGNANT NEOPLASM OF PANCREAS, UNSPECIFIED SNOMED Code(s): 078277110 (4) Peritoneal carcinoma Current Visit: Yes Status: Acute Code(s): C48.2 - MALIGNANT NEOPLASM OF PERITONEUM, UNSPECIFIED SNOMED Code(s): 177600595 Plan: Patient has pain medications for abdominal pain. CT of the abdomen and pelvis with and without contrast was performed. Those results came in by the end of the day. There is distention on the right and left side of the colon, some thickening. Surgery has been consulted. Patient has been made nothing by mouth. Malignancy of unknown primary. Patient was treated initially for PAWN SHOP KEEPER malignancy, no improvements after 3 cycles. She is status post first cycle of treatment for pancreatic primary. Her CBC is stable. Due for 2nd cycle this week. Treatment will be on hold until her current condition is managed. Intractable hiccups: Thorazine ordered. Discussed case with RN. Plan for NG tube if patient begins vomiting or progressive abdominal pain or distention.
[2021-04-07] MEDS: ONDANSETRON 4 MG/2 ML VIAL IVP PRN (19:17)
[2021-04-07] MEDS: OLANZapine 5 MG TAB PO SCH (22:20)
[2021-04-08] MEDS ORDERED: SODIUM CHLORIDE 0.9% 500 ML 500 ML IV ONE (06:26)
[2021-04-08] MEDS: HYDROmorphone 1 MG/ML 1 ML SYRINGE IVP PRN ×4 (06:31→20:26)
[2021-04-08] MEDS: PANTOPRAZOLE 40 MG TABLET PO SCH (08:26)
[2021-04-08] MEDS: CEFEPIME 2 GM in SODIUM CHLORIDE 0.9% 100 ML IVPB SCH (09:05)
[2021-04-08] MEDS: ENOXAPARIN 40 MG/0.4 ML SYRINGE SQ SCH (09:06)
[2021-04-08 09:22] LABS: Anisocytosis Slight; Basophils % (A) 0 %; Eosinophils % (A) 0 %; HCT 31.5 % (34.0-46.0); HGB 10.5 gm/dL (11.4-16.0); Lymphocytes # (A) 0.4 k/uL (1.0-4.8); Lymphocytes % (A) 4 %; MCH 33.6 pg (25.0-35.0); MCHC 33.4 g/dL (31.0-37.0); MCV 100.5 fL (80.0-100.0); Macrocytosis Slight; Mean Platelet Volume 8.1; Monocytes # (A) 0.6 k/uL (0-1.0); Monocytes % (A) 6 %; Neutrophils # (A) 8.3 k/uL (1.3-7.7); Neutrophils % (A) 88 %; Platelet Count 153 k/uL (150-450); RBC 3.13 m/uL (3.80-5.40); RDW 16.7 % (11.5-15.5); WBC 9.4 k/uL (3.8-10.6)
[2021-04-08 09:41] LABS: ALT 10 U/L (4-34); AST 24 U/L (14-36); African American GFR (CKD) >90 (>60 ml/min/1.73 sqM); Albumin 2.4 g/dL (3.5-5.0); Alkaline Phosphatase 128 U/L (38-126); Anion Gap 8 mmol/L; Blood Urea Nitrogen 14 mg/dL (7-17); Calcium 7.5 mg/dL (8.4-10.2); Carbon Dioxide 22 mmol/L (22-30); Chloride 103 mmol/L (98-107); Globulin 2.4 g/dL; Glucose 111 mg/dL (74-99); Magnesium 1.7 mg/dL (1.6-2.3); Non-African American GFR(CKD) >90 (>60 ml/min/1.73 sqM); Potassium 3.5 mmol/L (3.5-5.1); Sodium 133 mmol/L (137-145); Total Bilirubin 0.2 mg/dL (0.2-1.3); Total Protein 4.8 g/dL (6.3-8.2)
--- NOTE | 2021-04-08 12:46 | P.GSCN ---
History of Present Illness Consult date: 04/08/21 Reason for Consult: Abdominal pain History of present illness: 61-year-old female known to our service from recently placed Port-A-Cath. Bertha avery was diagnosed with peritoneal carcinomatosis. Exact source is not known at present. She is undergoing chemotherapy. Presents to the hospital complaining of weakness, bloating, abdominal pain. Has intermittent liquid stools. Last liquid stool yesterday evening. She had a CAT scan showing small and large bowel dilation. There is air distended at the rectal vault suggesting ileus rather than obstruction. She does feel better today. She has weekly paracentesis performed for symptomatic ascites. No vomiting today. Some belching. She is thirsty. Lactic acid normal. CAT scan also showed significant atherosclerosis of the mesenteric vasculature. Review of Systems The patient denies any acute changes in vision or hearing, no dysphagia or odynophagia, no chest pain or shortness of breath, no dysuria or hematuria, no headache, no runny nose, no rectal bleeding or melena, no unexplained weight loss Past Medical History Past Medical History: Cancer, GERD/Reflux, GI Bleed, Hyperlipidemia, Hypertension Additional Past Medical History / Comment(s): abdominal pain & weight loss recently, & pain under sternum into back, diverticulosis, GI bleed 3 yrs ago, hx. colon polyps, spots on lungs-dr. 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, asites History of Any Multi-Drug Resistant Organisms: None Reported Past Surgical History: Orthopedic Surgery Additional Past Surgical History / Comment(s): carotid endarterectomy rt, arthroscopy santos knees, and rt shoulder, colonoscopy, multi paracentesis, medipo rt insertion Past Anesthesia/Blood Transfusion Reactions: No Reported Reaction Past Psychological History: Anxiety Smoking Status: Current some day smoker Past Alcohol Use History: Occasional Additional Past Alcohol Use History / Comment(s): smoker 1ppd 40 years Past Drug Use History: None Reported - Past Family History Father Family Medical History: Cancer Additional Family Medical History / Comment(s): colon cancer Medications and Allergies Home Medications Medication Instructions Recorded Confirmed Type Metoprolol Succinate (ER) [Toprol 25 mg PO DAILY 07/26/20 04/06/21 History Xl] OLANZapine [ZyPREXA] 5 mg PO HS 01/09/21 04/06/21 History Omeprazole 20 mg PO DAILY 01/09/21 04/06/21 History Ondansetron [Zofran] 4 mg PO Q4H PRN 01/09/21 04/06/21 History HYDROcodone/APAP 5-325MG [[place] 1 tab PO Q6HR PRN 02/06/21 04/06/21 History 5-325] ALPRAZolam [Xanax] 0.5 mg PO TID PRN 04/06/21 04/06/21 History Allergies Allergy/AdvReac Type Severity Reaction Status Date / Time No Known Allergies Allergy Verified 04/06/21 14:23 Surgical - Exam Vital Signs Temp Pulse Resp BP Pulse Ox 97.3 F L 108 H 18 111/80 97 04/06/21 11:58 04/06/21 11:58 04/06/21 11:58 04/06/21 11:58 04/06/21 11:58 Physical exam: General: Somewhat malnourished appearing HEENT: Normocephalic, sclerae nonicteric Abdomen: Mild diffuse tenderness, moderate distention Extremities: No edema Neuro: Alert and oriented Results - Labs 04/08/21 08:49 04/08/21 08:49 Abnormal Lab Results - Last 24 Hours (Table) 04/08/21 04/08/21 Range/Units 08:49 08:49 RBC 3.13 L (3.80-5.40) m/uL Hgb 10.5 L (11.4-16.0) gm/dL Hct 31.5 L (34.0-46.0) % MCV 100.5 H (80.0-100.0) fL RDW 16.7 H (11.5-15.5) % Neutrophils # 8.3 H (1.3-7.7) k/uL Lymphocytes # 0.4 L (1.0-4.8) k/uL Sodium 133 L (137-145) mmol/L Glucose 111 H (74-99) mg/dL Calcium 7.5 L (8.4-10.2) mg/dL Alkaline Phosphatase 128 H (38-126) U/L Total Protein 4.8 L (6.3-8.2) g/dL Albumin 2.4 L (3.5-5.0) g/dL Microbiology - Last 24 Hours (Table) 04/06/21 15:45 Blood Culture - Preliminary Blood No Growth after 24 hours Diabetes panel 04/08/21 Range/Units 08:49 Sodium 133 L (137-145) mmol/L Potassium 3.5 (3.5-5.1) mmol/L Chloride 103 (98-107) mmol/L Carbon Dioxide 22 (22-30) mmol/L BUN 14 (7-17) mg/dL Creatinine 0.53 (0.52-1.04) mg/dL Glucose 111 H (74-99) mg/dL Calcium 7.5 L (8.4-10.2) mg/dL AST 24 (14-36) U/L ALT 10 (4-34) U/L Alkaline Phosphatase 128 H (38-126) U/L Total Protein 4.8 L (6.3-8.2) g/dL Albumin 2.4 L (3.5-5.0) g/dL Calcium panel 04/08/21 Range/Units 08:49 Calcium 7.5 L (8.4-10.2) mg/dL Albumin 2.4 L (3.5-5.0) g/dL Pituitary panel 04/08/21 Range/Units 08:49 Sodium 133 L (137-145) mmol/L Potassium 3.5 (3.5-5.1) mmol/L Chloride 103 (98-107) mmol/L Carbon Dioxide 22 (22-30) mmol/L BUN 14 (7-17) mg/dL Creatinine 0.53 (0.52-1.04) mg/dL Glucose 111 H (74-99) mg/dL Calcium 7.5 L (8.4-10.2) mg/dL Adrenal panel 04/08/21 Range/Units 08:49 Sodium 133 L (137-145) mmol/L Potassium 3.5 (3.5-5.1) mmol/L Chloride 103 (98-107) mmol/L Carbon Dioxide 22 (22-30) mmol/L BUN 14 (7-17) mg/dL Creatinine 0.53 (0.52-1.04) mg/dL Glucose 111 H (74-99) mg/dL Calcium 7.5 L (8.4-10.2) mg/dL Total Bilirubin 0.2 (0.2-1.3) mg/dL AST 24 (14-36) U/L ALT 10 (4-34) U/L Alkaline Phosphatase 128 H (38-126) U/L Total Protein 4.8 L (6.3-8.2) g/dL Albumin 2.4 L (3.5-5.0) g/dL Assessment and Plan (1) Abdominal pain Narrative/Plan: 61-year-old female with abdominal pain and CAT scan suggesting abdominal ileus. Begin Dulcolax suppositories. May have sips of liquids. Repeat abdominal films tomorrow. We'll follow. Current Visit: Yes Status: Acute Priority: High Code(s): R10.9 - UNS PECIFIED ABDOMINAL PAIN SNOMED Code(s): 71549752
[2021-04-08] MEDS: bisacodyL 10 MG SUPP RECTAL SCH (13:30)
[2021-04-08] MEDS: 0.9% NACL WITH KCL 40 MEQ/L 1,000 ML IV SCH ×2 (14:28→20:39)
--- NOTE | 2021-04-08 17:41 | P.PN ---
Subjective Progress Note Date: 04/08/21 Principal diagnosis: Intractable N,V In f/u pt denies vomiting yesterday or today, her hiccups are stable, no BM today. Abd is still distended, no significant relief yet, she is passing gas. Objective - Vital Signs Vital signs: Vital Signs Temp 97.8 F 04/08/21 11:43 Pulse 99 04/08/21 11:43 Resp 18 04/08/21 11:43 BP 108/79 04/08/21 11:43 Pulse Ox 98 04/08/21 11:43 Intake & Output 04/07/21 04/08/21 04/08/21 18:59 06:59 18:59 Intake Total 900 0 Balance 900 0 Weight 56.245 kg Intake: Intake, IV Titration 900 Amount 0.9% NaCl with KCl 40 Meq 900 /l 1,000 ml @ 75 mls/hr IV .[id number] [facility] Rx#: [id number] Oral 0 Other: Voiding Method Toilet Toilet # Voids 3 2 - Constitutional General appearance: Present: cooperative, mild distress, thin - EENT Eyes: Present: anicteric sclerae, EOMI ENT: Present: hearing grossly normal - Respiratory Respiratory: bilateral: CTA - Cardiovascular Rhythm: regular Heart sounds: normal: S1, S2 Abnormal Heart Sounds: Absent: systolic murmur, diastolic murmur, rub, S3 Gallop, S4 Gallop, click, other - Gastrointestinal General gastrointestinal: Present: distended, hyperactive bowel sounds, tenderness - Neurologic Neurologic: Present: CNII-XII intact - Musculoskeletal Musculoskeletal: Present: generalized weakness - Psychiatric Psychiatric: Present: A&O x's 3, appropriate affect, intact judgment & insight - Labs CBC & Chem 7: 04/08/21 08:49 04/08/21 08:49 Labs: Abnormal Lab Results - Last 24 Hours (Table) 04/08/21 04/08/21 Range/Units 08:49 08:49 RBC 3.13 L (3.80-5.40) m/uL Hgb 10.5 L (11.4-16.0) gm/dL Hct 31.5 L (34.0-46.0) % MCV 100.5 H (80.0-100.0) fL RDW 16.7 H (11.5-15.5) % Neutrophils # 8.3 H (1.3-7.7) k/uL Lymphocytes # 0.4 L (1.0-4.8) k/uL Sodium 133 L (137-145) mmol/L Glucose 111 H (74-99) mg/dL Calcium 7.5 L (8.4-10.2) mg/dL Alkaline Phosphatase 128 H (38-126) U/L Total Protein 4.8 L (6.3-8.2) g/dL Albumin 2.4 L (3.5-5.0) g/dL Microbiology - Last 24 Hours (Table) 04/06/21 15:45 Blood Culture - Preliminary Blood No Growth after 24 hours Assessment and Plan (1) Intractable nausea and vomiting Current Visit: Yes Status: Acute Priority: High Code(s): R11.2 - NAUSEA WITH VOMITING, UNSPECIFIED SNOMED Code(s): 395653032 (2) Abdominal pain Current Visit: Yes Status: Acute Priority: High Code(s): R10.9 - UNSPECIFIED ABDOMINAL PAIN SNOMED Code(s): 19635278 (3) Pancreatic cancer Current Visit: Yes Status: Acute Code(s): C25.9 - MALIGNANT NEOPLASM OF PANCREAS, UNSPECIFIED SNOMED Code(s): 549825869 (4) Peritoneal carcinoma Narrative/Plan: Malignancy of unknown primary. Patient was treated initially for ENGAGEMENT DIRECTOR malignancy, no improvements after 3 cycles. She is status post first cycle of treatment for pancreatic primary. Her CBC is stable. Due for 2nd cycle this week. Treatment will be on hold until her current condition is managed. Unfortunately, it is impossible to tell if treatment is going to be effective- she has only had 1 cycle. I spoke with her daughter about this. We will talk with pt about her wishes moving forward. Surgery as seen pt, medical mgmt at this time. Have asked for Cardiology to comment on the renal artery extrinsic compression-can a stent be placed. We await their evaluation and recommendations Current Visit: Yes Status: Acute Priority: High Code(s): C48.2 - MALIGNANT NEOPLASM OF PERITONEUM, UNSPECIFIED SNOMED Code(s): 900916007 Plan: Attests: I have performed H&P, developed impression and plan of care. Discussed with dictator. Agree with dictation, documented as a scribe
[2021-04-08] MEDS: OLANZapine 5 MG TAB PO SCH (20:31)
[2021-04-08] MEDS: chlorproMAZINE 25 MG TAB PO PRN (21:06)
--- NOTE | 2021-04-09 01:02 | P.PN ---
Subjective Progress Note Date: 04/08/21 This is a 61 year old female recently admitted with nausea and vomiting and found to be dehydrated and is being closely monitored. Patient currently active in chemo for stage IV pancreatic cancer with metastasis. Patient is being followed by oncology as well as surgery as patient abdomen continues to be d istended and abdomen pelvis shows possible ileus. Surgery recommending continuing with conservative management and being started on dulcolax suppositories. Patient continues with occasional nausea and denies any vomiting or bowel movements at this time. Patient ct also showed severe left renal artery stenosis at the aortic bifurcation and cardiology consulted. Review of systems: Constitutional: reports of fatigue, no reports of fever, or chills Cardiovascular: No reports of chest pain or palpitations Respiratory: No reports of shortness of breath or cough GI: reports of nausea, denies vomiting, or diarrhea, abdominal discomfort and distention continued : No reports of dysuria or retention Neurovascular: Reports generalized weakness All medications have been reviewed Objective - Vital Signs Vital signs: Vital Signs Temp 97.5 F L 04/08/21 05:00 Pulse 71 04/08/21 05:00 Resp 20 04/08/21 05:00 BP 104/72 04/08/21 05:00 Pulse Ox 98 04/08/21 05:00 Intake & Output 04/07/21 04/08/21 04/08/21 18:59 06:59 18:59 Intake Total 900 0 Balance 900 0 Weight 56.245 kg Intake: Intake, IV Titration 900 Amount 0.9% NaCl with KCl 40 Meq 900 /l 1,000 ml @ 75 mls/hr IV .[id number] [facility] Rx#: [id number] Oral 0 Other: Voiding Method Toilet Toilet # Voids 3 2 - Exam Patient is lying in bed, awake alert and oriented x3. On room air, afebrile HEENT: Normocephalic. Neck is supple. Pupils reactive. Nostrils clear. Oral cavity is moist. Neck reveals no JVD, carotid bruits, or thyromegaly. Respiratory: diminished breath sounds with no wheezing or rhonchi noted. CARDIAC: S1, S2 are muffled ABDOMEN: distended. Bowel sounds sluggish. No organomegaly. No abdominal bruits. mild tenderness noted Extremities: reveal no edema. No clubbing or cyanosis Neurologically awake, alert, oriented x3. No focal deficits noted. Diffusely weak. Skin: No rash or skin lesions. Psychiatric: Cooperative. Non-suicidal Musculoskeletal: No joint swelling or deformity. - Constitutional General appearance: Present: average body habitus - Labs CBC & Chem 7: 04/08/21 08:49 04/08/21 08:49 Labs: Abnormal Lab Results - Last 24 Hours (Table) 04/07/21 Range/Units 04:46 Sodium 134 L (135-145) mmol/L Carbon Dioxide 18.9 L (21.6-31.8) mmol/L Anion Gap 14.10 H (4.00-12.00) mmol/L BUN/Creatinine Ratio 31.67 H (12.00-20.00) Ratio Glucose 118 H (70-110) mg/dL Calcium 7.2 L (8.7-10.3) mg/dL Microbiology - Last 24 Hours (Table) 04/06/21 15:45 Blood Culture - Preliminary Blood No Growth after 24 hours Assessment and Plan Assessment: stage IV pancreatic cancer with metastasis on chemotherapy CVD dehydration and weakness, present on admission Increased WBC, possible sepsis, present on admission Hyponatremia Severe left renal artery stenosis as noted on CT possible ileus hypokalemia hypomagnesemia Hypoalbuminemia with severe protein calorie malnutrition GERD hypertension hyperlipidemia History of anxiety continued ongoing nicotine dependence No code Plan: continue with current medications. Patient continues on gentle IV hydration and antiemetics along with thorazine for continuous hiccups. Surgery and oncology following and cardiology consulted for CT findings of severe Left renal artery stenosis noted at the aortic bifurcation and pending at this time. Patient is currently receiving chemo treatment with next round being next week although will defer until present symptoms resolve. Surgery recommending medical management and will start some small sips of clear liquid diet and dulcolax suppositories. Will repeat labs and replace electrolytes per protocol.
[2021-04-09] MEDS: ONDANSETRON 4 MG/2 ML VIAL IVP PRN (04:39)
[2021-04-09] MEDS: HYDROmorphone 1 MG/ML 1 ML SYRINGE IVP PRN ×5 (04:39→22:53)
[2021-04-09 06:08] LABS: Anisocytosis Slight; Basophils % (A) 0 %; Eosinophils % (A) 1 %; HGB 10.6 gm/dL (11.4-16.0); Lymphocytes # (A) 0.6 k/uL (1.0-4.8); Lymphocytes % (A) 9 %; MCH 32.5 pg (25.0-35.0); MCHC 32.1 g/dL (31.0-37.0); MCV 101.3 fL (80.0-100.0); Macrocytosis Moderate; Monocytes # (A) 0.4 k/uL (0-1.0); Monocytes % (A) 6 %; Neutrophils # (A) 5.3 k/uL (1.3-7.7); Neutrophils % (A) 83 %; Platelet Count 155 k/uL (150-450); RBC 3.26 m/uL (3.80-5.40); RDW 17.1 % (11.5-15.5); WBC 6.5 k/uL (3.8-10.6)
[2021-04-09 06:20] LABS: ALT 10 U/L (4-34); AST 23 U/L (14-36); African American GFR (CKD) >90 (>60 ml/min/1.73 sqM); Albumin 2.5 g/dL (3.5-5.0); Alkaline Phosphatase 121 U/L (38-126); Anion Gap 9 mmol/L; Blood Urea Nitrogen 11 mg/dL (7-17); Calcium 7.4 mg/dL (8.4-10.2); Carbon Dioxide 22 mmol/L (22-30); Chloride 100 mmol/L (98-107); Globulin 2.4 g/dL; Glucose 106 mg/dL (74-99); Magnesium 1.5 mg/dL (1.6-2.3); Non-African American GFR(CKD) >90 (>60 ml/min/1.73 sqM); Potassium 3.2 mmol/L (3.5-5.1); Sodium 131 mmol/L (137-145); Total Bilirubin 0.2 mg/dL (0.2-1.3); Total Protein 4.9 g/dL (6.3-8.2)
--- NOTE | 2021-04-09 08:06 | XR ---
EXAMINATION TYPE: XR abdomen 2V DATE OF EXAM: 04/09/2021 COMPARISON: CT abdomen and pelvis 04/07/2021 INDICATION: Ileus TECHNIQUE: Abdomen examination of the upright and supine view FINDINGS: Dilated loops of bowel are present. Air-fluid levels are present. There appears to be within the colo n. Nonspecific small bowel gas may be present. Psoas margins are not well visualized. Scoliosis through the lumbar spine. No organomegaly is present. IMPRESSION: 1. Prominent air-filled loops of colon with scattered air-fluid levels. Correlate for ileus. An obstr uction is not identified.
[2021-04-09] MEDS: ENOXAPARIN 40 MG/0.4 ML SYRINGE SQ SCH (08:18)
[2021-04-09] MEDS: PANTOPRAZOLE 40 MG TABLET PO SCH (08:18)
[2021-04-09] MEDS: bisacodyL 10 MG SUPP RECTAL SCH ×2 (08:18→19:18)
[2021-04-09] MEDS ORDERED: Potassium Replacement Protocol 1 EACH MISC MISCELLANE PRN (09:18)
[2021-04-09] MEDS: 0.9% NACL WITH KCL 40 MEQ/L 1,000 ML IV SCH (09:55)
[2021-04-09] MEDS: POTASSIUM CHLORIDE ER 20 MEQ TAB.ER PO SCH ×2 (09:56→11:19)
[2021-04-09] MEDS: MAGNESIUM SULFATE-D5W PMX 1 GM in DEXTROSE/WATER 1 100ML.BAG IVPB SCH ×2 (09:56→12:01)
[2021-04-09] MEDS: POTASSIUM BICARBONATE/CIT AC 20 MEQ TABLET.EFF NG-TUBE SCH ×2 (12:01→13:39)
--- NOTE | 2021-04-09 12:21 | P.CRDCN ---
History of Present Illness History of present illness: HISTORY OF PRESENTING ILLNESS This is a pleasant 61-year-old female past medical history significant for hypertension, dyslipidemia, pancreatic cancer with metastases is receiving chemotherapy, GERD, chronic nicotine dependence. She used to follow in the office with Dr. Murray has not been seen since 2014. We have been asked to see in consultation for CT results of renal artery stenosis. Patient presents to the emergency department on 04/06/2021 with complaints of decreased by mouth intake since chemotherapy treatment about 2 weeks ago. Patient was admitted with dehydration and weakness and hyponatremia She had symptoms of abdominal distention, nausea, vomiting, diarrhea. Oncology and surgery were consulted for the patient and are following. Surgery is on board for Ileus seen on CT and recommended Dulcolax suppository. Abdominal x-ray 04/09 revealed prominent air-filled loops of colon with scattered air-fluid levels. Correlate for ileus. An obstruction is not identified. CT abdomen and pelvis revealed areas of moderate to severe atherosclerotic change in the abdominal aorta, severe stenosis of the celiac axis and SMA organs. New segmental small bowel distention with scattered wall thickening and no distention of the colon, considered generalized ileus versus enteritis. Correlate with lactic acid levels to exclude mesenteric ischemia. Left renal artery is no longer well seen as well as delayed enhancement the left kidney, findings compatible with severe, clinically significant left renal artery stenosis. Known moderate ascites and pelvic peritoneal carcinomatosis. Severe atherosclerotic stenosis at the aortic bifurcation and proximal right common iliac artery. DIAGNOSTICS EKG on admission revealed sinus tachycardia, heart rate 129.. Chest xray no acute cardiopulmonary process. Laboratory reviewed, WBC 6.5, hemoglobin 10.6, platelets 455, sodium 131, potassium 3.2, BUN 11, serum creatinine 0.48, magnesium 1.5, lactate negative Most recent echocardiogram 07/2015 revealed a normal ejection fraction, moderate pulmonary hypertension. Current cardiac medications include metoprolol succinate 25mg daily, REVIEW OF SYSTEMS At the time of my exam: CONSTITUTIONAL: Denies fever or chills. CARDIOVASCULAR: Denies chest pain, shortness of breath, orthopnea, PND or palpitations. RESPIRATORY: Denies cough. GASTROINTESTINAL: Positive abdominal pain, positive nausea, positive vomiting, positive diarrhea MUSCULOSKELETAL: Denies myalgias. NEUROLOGIC: Denies numbness, tingling, headacbe or weakness. ENDOCRINE: Denies fatigue, weight change, polydipsia or polyurina. GENITOURINARY: Denies burning, hematuria or urgency with micturation. HEMATOLOGIC: Denies history of anemia or bleeding. PHYSICAL EXAMINATION Blood pressure 113/85 heart rate 82 afebrile and maintaining oxygen saturation on 94% on room air. CONSTITUTIONAL: No apparent distress. HEENT: Head is normocephalic. Pupils are equal, round. Sclerae anicteric. Mucous membranes of the mouth are moist. No JVD. No carotid bruit. CHEST EXAMINATION: Lungs are clear to auscultation. No chest wall tenderness is noted on palpation or with deep breathing. HEART EXAMINATION: Regular rate and rhythm. S1, S2 heard. No murmurs, gallops or rub. ABDOMEN: Distended Positive bowel sounds. EXTREMITIES: 2+ peripheral pulses, no lower extremity edema and no calf tenderness. NEUROLOGIC EXAMINATION: Patient is awake, alert and oriented x3. ASSESSMENT Stage IV pancreatic cancer with metastasis on chemotherapy Severe left renal artery stenosis as noted on CT Severe atherosclerotic stenosis at the aortic bifurcation and proximal right common iliac artery noted on CT Ileus Hypokalemia Hypoalbuminemia with severe protein calorie malnutrition GERD Hypertension Hyperlipidemia History of anxiety Chronic nicotine dependence PLAN Patient discussed and assessed with Dr. Hardy Patient is normotensive, and in the absence of uncontrolled hypertension and in the absence of bilateral lower extremity claudication and no criticial limb ischemia. We recommend medical conservative treatment that can be done as an outpatient at this time. No further cardiac recommendations at this time. Nurse Practitioner note has been reviewed, I agree with a documented findings and plan of care. Patient was seen and examined. Past Medical History Past Medical History: Cancer, GERD/Reflux, GI Bleed, Hyperlipidemia, Hypertension Additional Past Medical History / Comment(s): abdominal pain & weight loss recently, & pain under sternum into back, diverticulosis, GI bleed 3 yrs ago, hx. colon polyps, spots on lungs-dr. 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, asites History of Any Multi-Drug Resistant Organisms: None Reported Past Surgical History: Orthopedic Surgery Additional Past Surgical History / Comment(s): carotid endarterectomy rt, arthro scopy santos knees, and rt shoulder, colonoscopy, multi paracentesis, mediport insertion Past Anesthesia/Blood Transfusion Reactions: No Reported Reaction Past Psychological History: Anxiety Smoking Status: Current some day smoker Past Alcohol Use History: Occasional Additional Past Alcohol Use History / Comment(s): smoker 1ppd 40 years Past Drug Use History: None Reported - Past Family History Father Family Medical History: Cancer Additional Family Medical History / Comment(s): colon cancer Medications and Allergies Home Medications Medication Instructions Recorded Confirmed Type Metoprolol Succinate (ER) [Toprol 25 mg PO DAILY 07/26/20 04/06/21 History Xl] OLANZapine [ZyPREXA] 5 mg PO HS 01/09/21 04/06/21 History Omeprazole 20 mg PO DAILY 01/09/21 04/06/21 History Ondansetron [Zofran] 4 mg PO Q4H PRN 01/09/21 04/06/21 History HYDROcodone/APAP 5-325MG [[place] 1 tab PO Q6HR PRN 02/06/21 04/06/21 History 5-325] ALPRAZolam [Xanax] 0.5 mg PO TID PRN 04/06/21 04/06/21 History Allergies Allergy/AdvReac Type Severity Reaction Status Date / Time No Known Allergies Allergy Verified 04/06/21 14:23 Physical Exam Vitals: Vital Signs Temp Pulse Resp BP Pulse Ox 04/09/21 07:19 177/77 04/09/21 05:00 97.8 F 67 16 95 04/08/21 20:18 97.3 F L 82 16 113/85 94 L 04/08/21 20:00 82 16 04/08/21 11:43 97.8 F 99 18 108/79 98 Intake and Output 04/08/21 04/09/21 04/09/21 22:59 06:59 14:59 Other: Voiding Method Toilet # Voids 2 Results 04/09/21 05:28 04/09/21 05:28 Cardiac Enzymes 04/09/21 Range/Units 05:28 AST 23 (14-36) U/L CBC 04/09/21 Range/Units 05:28 WBC 6.5 (3.8-10.6) k/uL RBC 3.26 L (3.80-5.40) m/uL Hgb 10.6 L (11.4-16.0) gm/dL Hct 33.0 L (34.0-46.0) % Plt Count 155 (150-450) k/uL Comprehensive Metabolic Panel 04/09/21 Range/Units 05:28 Sodium 131 L (137-145) mmol/L Potassium 3.2 L (3.5-5.1) mmol/L Chloride 100 (98-107) mmol/L Carbon Dioxide 22 (22-30) mmol/L BUN 11 (7-17) mg/dL Creatinine 0.48 L (0.52-1.04) mg/dL Glucose 106 H (74-99) mg/dL Calcium 7.4 L (8.4-10.2) mg/dL AST 23 (14-36) U/L ALT 10 (4-34) U/L Alkaline Phosphatase 121 (38-126) U/L Total Protein 4.9 L (6.3-8.2) g/dL Albumin 2.5 L (3.5-5.0) g/dL Current Medications Generic Name Dose Route Start Last Admin Trade Name Freq PRN Reason Stop Dose Admin Acetaminophen 650 mg 04/06/21 13:54 Acetaminophen Tab 325 Mg Tab PO Q6HR PRN Mild Pain or Fever > 100.5 Hydrocodone Bitart/Acetaminophen 1 each 04/06/21 15:24 Hydrocodone/Apap 5-325mg 1 Each Tab PO Q6HR PRN Pain Alprazolam 0.25 mg 04/06/21 15:22 Alprazolam 0.25 Mg Tab PO TID PRN Anxiety Bisacodyl 10 mg 04/08/21 12:45 04/09/21 08:18 Bisacodyl 10 Mg Supp RECTAL Not Given DAILY YOANA Chlorpromazine HCl 25 mg 04/07/21 16:04 04/08/21 21:06 Chlorpromazine 25 Mg Tab PO 25 mg Q6HR PRN Administration Moderate Agitation Enoxaparin Sodium 40 mg 04/07/21 09:00 04/09/21 08:18 Enoxaparin 40 Mg/0.4 Ml Syringe SQ 40 mg DAILY YOANA Administration Hydromorphone HCl 1 mg 04/06/21 13:54 04/09/21 10:01 Hydromorphone 1 Mg/Ml 1 Ml Syringe IVP 1 mg Q3HR PRN Administration Severe Pain Hydromorphone HCl 0.5 mg 04/06/21 13:54 Hydromorphone 0.5 Mg/0.5 Ml Syringe IVP Q3HR PRN Moderate Pain Potassium Chloride/Sodium Chloride 1,000 mls @ 75 mls/hr 04/06/21 19:00 04/09/21 09:55 Ns-Kcl 40 Meq/L Iv Solution IV 75 mls/hr .[id number] YOANA Administration Magnesium Sulfate/Dextrose 1 100 mls @ 100 mls/hr 04/09/21 09:30 04/09/21 09:56 gm/ IV Solution IVPB 04/09/21 11:29 100 mls/hr Q1H YOANA Administration Miscellaneous Information 1 each 04/06/21 15:25 Magnesium Replacement Protocol 1 Each Misc MISCELLANE DAILY PRN Per Protocol Protocol Miscellaneous Information 1 each 04/06/21 15:25 Potassium Replacement Protocol 1 Each Misc MISCELLANE DAILY PRN Per Protocol Protocol Miscellaneous Information 1 each 04/09/21 09:18 Potassium Replacement Protocol 1 Each Misc MISCELLANE DAILY PRN Per Protocol Protocol Naloxone HCl 0.2 mg 04/06/21 13:54 Naloxone 0.4 Mg/Ml 1 Ml Vial IV Q2M PRN Opioid Reversal Olanzapine 5 mg 04/06/21 21:00 04/08/21 20:31 Olanzapine 5 Mg Tab PO Not Given HS YOANA Ondansetron HCl 4 mg 04/06/21 15:22 04/06/21 20:26 Ondansetron 4 Mg Tab PO 4 mg Q4H PRN Administration Nausea And Vomiting Ondansetron HCl 4 mg 04/07/21 18:56 04/09/21 04:39 Ondansetron 4 Mg/2 Ml Vial IVP 4 mg Q6HR PRN Administration Nausea And Vomiting Pantoprazole Sodium 40 mg 04/06/21 15:30 04/09/21 08:18 Pantoprazole 40 Mg Tablet PO 40 mg [id number] YOANA Administration Potassium Chloride 20 meq 04/09/21 10:00 04/09/21 09:56 Potassium Chloride Er 20 Meq Tab.Er PO 04/09/21 11:01 20 meq Q1HR YOANA Administration Protocol Temazepam 15 mg 04/06/21 15:25 Temazepam 15 Mg Cap PO HS PRN Insomnia Intake and Output 04/08/21 04/09/21 04/09/21 22:59 06:59 14:59 Other: Voiding Method Toilet # Voids 2 04/09/21 05:28 04/09/21 05:28
--- NOTE | 2021-04-09 14:13 | P.PN ---
Subjective Progress Note Date: 04/09/21 Principal diagnosis: Abdominal pain Patient says her abdomen is little bit less bloated. Still having mild discomfort. She did pass flatus and had a small liquid stool. She is tolerating her liquid diet. She is afebrile. Abdominal x-rays she'll still small and large bowel air-filled distention. Objective - Vital Signs Vital signs: Vital Signs Temp 98.8 F 04/09/21 12:01 Pulse 116 H 04/09/21 12:01 Resp 20 04/09/21 12:01 BP 124/92 04/09/21 12:01 Pulse Ox 95 04/09/21 12:01 Intake & Output 04/08/21 04/09/21 04/09/21 18:59 06:59 18:59 Other: Voiding Method Toilet # Voids 2 2 - Exam Abdomen: Soft, mild to moderate distention with tympany, mild diffuse tenderness - Labs CBC & Chem 7: 04/09/21 05:28 04/09/21 05:28 Labs: Abnormal Lab Results - Last 24 Hours (Table) 04/09/21 04/09/21 Range/Units 05:28 05:28 RBC 3.26 L (3.80-5.40) m/uL Hgb 10.6 L (11.4-16.0) gm/dL Hct 33.0 L (34.0-46.0) % MCV 101.3 H (80.0-100.0) fL RDW 17.1 H (11.5-15.5) % Lymphocytes # 0.6 L (1.0-4.8) k/uL Sodium 131 L (137-145) mmol/L Potassium 3.2 L (3.5-5.1) mmol/L Creatinine 0.48 L (0.52-1.04) mg/dL Glucose 106 H (74-99) mg/dL Calcium 7.4 L (8.4-10.2) mg/dL Magnesium 1.5 L (1.6-2.3) mg/dL Total Protein 4.9 L (6.3-8.2) g/dL Albumin 2.5 L (3.5-5.0) g/dL Microbiology - Last 24 Hours (Table) 04/06/21 15:45 Blood Culture - Preliminary Blood No Growth after 48 hours Assessment and Plan (1) Abdominal pain Narrative/Plan: Continue increasing her activity. Daily Dulcolax suppositories. Continue clear liquids for now. Will follow. Current Visit: Yes Status: Acute Priority: High Code(s): R10.9 - UNSPECIFIED ABDOMINAL PAIN SNOMED Code(s): 17002118
--- NOTE | 2021-04-09 15:33 | P.PN ---
Subjective Progress Note Date: 04/09/21 Principal diagnosis: Intractable N,V In f/u pt is sitting up at bedside, pain better controlled but still persists, she is tolerating ice chips and clears, passing gas and did have clear liquid stool with some formed stool pieces seen. No vomiting. Abd is stable distended. No fevers Objective - Vital Signs Vital signs: Vital Signs Temp 98.8 F 04/09/21 12:01 Pulse 116 H 04/09/21 12:01 Resp 20 04/09/21 12:01 BP 124/92 04/09/21 12:01 Pulse Ox 95 04/09/21 12:01 Intake & Output 04/08/21 04/09/21 04/09/21 18:59 06:59 18:59 Other: Voiding Method Toilet # Voids 2 2 - Constitutional General appearance: Present: cooperative, no acute distress, thin - EENT Eyes: Present: anicteric sclerae, EOMI ENT: Present: hearing grossly normal, normal oropharynx - Respiratory Respiratory: bilateral: CTA, diminished - Cardiovascular Rhythm: regular Heart sounds: normal: S1, S2 Abnormal Heart Sounds: Absent: systolic murmur, diastolic murmur, rub, S3 Gallop, S4 Gallop, click, other - Peripheral edema leg Peripheral Edema: bilateral: Trace - Gastrointestinal General gastrointestinal: Present: distended, soft, tenderness - Neurologic Neurologic: Present: CNII-XII intact - Musculoskeletal Musculoskeletal: Present: strength equal bilaterally - Psychiatric Psychiatric: Present: A&O x's 3, appropriate affect, intact judgment & insight - Labs CBC & Chem 7: 04/09/21 05:28 04/09/21 05:28 Labs: Abnormal Lab Results - Last 24 Hours (Table) 04/09/21 04/09/21 Range/Units 05:28 05:28 RBC 3.26 L (3.80-5.40) m/uL Hgb 10.6 L (11.4-16.0) gm/dL Hct 33.0 L (34.0-46.0) % MCV 101.3 H (80.0-100.0) fL RDW 17.1 H (11.5-15.5) % Lymphocytes # 0.6 L (1.0-4.8) k/uL Sodium 131 L (137-145) mmol/L Potassium 3.2 L (3.5-5.1) mmol/L Creatinine 0.48 L (0.52-1.04) mg/dL Glucose 106 H (74-99) mg/dL Calcium 7.4 L (8.4-10.2) mg/dL Magnesium 1.5 L (1.6-2.3) mg/dL Total Protein 4.9 L (6.3-8.2) g/dL Albumin 2.5 L (3.5-5.0) g/dL Microbiology - Last 24 Hours (Table) 04/06/21 15:45 Blood Culture - Preliminary Blood No Growth after 48 hours - Imaging and Cardiology Abdominal x-ray: report reviewed Assessment and Plan (1) Intractable nausea and vomiting Narrative/Plan: Improved, cont supportive meds Current Visit: Yes Status: Acute Priority: High Code(s): R11.2 - NAUSEA WITH VOMITING, UNSPECIFIED SNOMED Code(s): 834606293 (2) Abdominal pain Current Visit: Yes Status: Acute Priority: High Code(s): R10.9 - UNSPECIFIED ABDOMINAL PAIN SNOMED Code(s): 49001116 (3) Pancreatic cancer Current Visit: Yes Status: Acute Code(s): C25.9 - MALIGNANT NEOPLASM OF PANCREAS, UNSPECIFIED SNOMED Code(s): 795958081 (4) Peritoneal carcinoma Narrative/Plan: Malignancy of unknown primary. Patient was treated initially for [employer] malignancy, no improvements after 3 cycles. She is status post first cycle of treatment for pancreatic primary. Her CBC is stable. Unfortunately, it is impossible to tell if treatment is going to be effective- she has only had 1 cycle. I spoke with her daughter about this last night and pt about it today. Pt has expressed that she does not want any more chemo. We will talked about her wishes moving forward and the role of hospice. She will talk with her daughter fran and let the RN know if they would like a meeting with hospice. Surgery as seen pt, they cont to follow. Surgical mgmt has made pt more comfortable. Cardiology note reviewed, appreciate evaluation and recommendations. Current Visit: Yes Status: Acute Priority: High Code(s): C48.2 - MALIGNANT NEOPLASM OF PERITONEUM, UNSPECIFIED SNOMED Code(s): 701154172 Plan: Attests: I have performed H&P, developed impression and plan of care. Discussed with dictator. Agree with dictation, documented as a scribe
--- NOTE | 2021-04-09 15:35 | P.PN ---
Subjective Progress Note Date: 04/09/21 This is a 61 year old female recently admitted with nausea and vomiting and found to be dehydrated and is being closely monitored. Patient currently active in chemo for stage IV pancreatic cancer with metastasis. Patient is being followed by oncology as well as surgery as patient abdomen continues to be d istended and abdomen pelvis shows possible ileus. Surgery recommending continuing with conservative management and being started on dulcolax suppositories. Patient continues with occasional nausea and denies any vomiting or bowel movements at this time. Patient ct also showed severe left renal artery stenosis at the aortic bifurcation and cardiology consulted. 04/09/2021 Patient is seen in follow-up this morning more awake and alert sitting up at the site of the bed continues to have minimal hiccups and burping noted on exam. Patient states she had soft bowel movement and passing gas after breakfast today and tolerating oral intake although intake continues to be poor. Patient did use Dulcolax suppository yesterday although per nursing staff refused today. Cardiology consulted for severe left renal artery stenosis and discussing with Dr. Hardy about the CT findings. White blood count is 6.5 with a hemoglobin of 10.6, sodium is 131 with a potassium of 3.2 and will replace, current creatinine is 0.48. Potassium also found to be 1.5 and replacing and will repeat labs. Patient states she feels her pain is controlled at this time and continues with nausea which she states is chronic and denies any episodes of vomiting. Surgery also following and continuing with conservative management and repeat abdominal x-ray this morning shows prominent air-filled loops of colon with scattered air- fluid levels with no obstruction identified but continues with possible ileus. Further discussion to be had as well with daughter and patient about possible hospice care as patient had mentioned she does not want to continue with chemotherapy. Review of systems: Constitutional: reports of fatigue, no reports of fever, or chills Cardiovascular: No reports of chest pain or palpitations Respiratory: No reports of shortness of breath or cough GI: reports of nausea, denies vomiting, or diarrhea, abdominal discomfort and distention continued : No reports of dysuria or retention Neurovascular: Reports generalized weakness All medications have been reviewed Objective - Vital Signs Vital signs: Vital Signs Temp 98.8 F 04/09/21 12:01 Pulse 116 H 04/09/21 12:01 Resp 20 04/09/21 12:01 BP 124/92 04/09/21 12:01 Pulse Ox 95 04/09/21 12:01 Intake & Output 04/08/21 04/09/21 04/09/21 18:59 06:59 18:59 Other: Voiding Method Toilet # Voids 2 2 - Exam Patient is sitting up in bed, awake alert and oriented x3. On room air, afebrile HEENT: Normocephalic. Neck is supple. Pupils reactive. Nostrils clear. Oral cavity is moist. Neck reveals no JVD, carotid bruits, or thyromegaly. Respiratory: diminished breath sounds with no wheezing or rhonchi noted. CARDIAC: S1, S2 are muffled ABDOMEN: distended. Bowel sounds sluggish. No organomegaly. No abdominal bruits. mild tenderness noted Extremities: reveal no edema. No clubbing or cyanosis Neurologically awake, alert, oriented x3. No focal deficits noted. Diffusely weak. Skin: No rash or skin lesions. Psychiatric: Cooperative. Non-suicidal Musculoskeletal: No joint swelling or deformity. - Labs CBC & Chem 7: 04/09/21 05:28 04/09/21 05:28 Labs: Abnormal Lab Results - Last 24 Hours (Table) 04/09/21 04/09/21 Range/Units 05:28 05:28 RBC 3.26 L (3.80-5.40) m/uL Hgb 10.6 L (11.4-16.0) gm/dL Hct 33.0 L (34.0-46.0) % MCV 101.3 H (80.0-100.0) fL RDW 17.1 H (11.5-15.5) % Lymphocytes # 0.6 L (1.0-4.8) k/uL Sodium 131 L (137-145) mmol/L Potassium 3.2 L (3.5-5.1) mmol/L Creatinine 0.48 L (0.52-1.04) mg/dL Glucose 106 H (74-99) mg/dL Calcium 7.4 L (8.4-10.2) mg/dL Magnesium 1.5 L (1.6-2.3) mg/dL Total Protein 4.9 L (6.3-8.2) g/dL Albumin 2.5 L (3.5-5.0) g/dL Microbiology - Last 24 Hours (Table) 04/06/21 15:45 Blood Culture - Preliminary Blood No Growth after 48 hours Assessment and Plan Assessment: stage IV pancreatic cancer with metastasis on chemotherapy CVD dehydration and weakness, present on admission Increased WBC, possible sepsis, present on admission Hyponatremia Severe left renal artery stenosis as noted on CT possible ileus hypokalemia hypomagnesemia Hypoalbuminemia with severe protein calorie malnutrition GERD hypertension hyperlipidemia History of anxiety continued ongoing nicotine dependence No code Plan: continue with current medications. Patient continues on gentle IV hydration and antiemetics along with thorazine for continuous hiccups. Surgery and oncology following and cardiology consulted for CT findings of severe Left renal artery stenosis noted at the aortic bifurcation and will be discussed with Dr. Hardy about treatment plan moving forward. Patient is currently receiving chemo treatment with next round being next week although will defer until present symptoms resolve. Surgery recommending medical management and will start some small sips of clear liquid diet and dulcolax suppositories. Patient did use a Dulcolax suppository yesterday and had a bowel movement with gas passing today and refused Dulcolax suppositories today. Will replace electrolytes per protocol and repeat labs. Patient has mentioned she does not want to continue with chemo and will need to discuss further with daughter about possible hospice. Referral will be placed when warranted.
[2021-04-09] MEDS: OLANZapine 5 MG TAB PO SCH (21:14)
[2021-04-10] MEDS: HYDROmorphone 1 MG/ML 1 ML SYRINGE IVP PRN ×5 (01:56→20:01)
[2021-04-10] MEDS: 0.9% NACL WITH KCL 40 MEQ/L 1,000 ML IV SCH ×2 (01:56→17:13)
[2021-04-10] MEDS: MAGNESIUM SULFATE-D5W PMX 1 GM in DEXTROSE/WATER 1 100ML.BAG IVPB SCH ×2 (08:05→10:46)
[2021-04-10] MEDS: PANTOPRAZOLE 40 MG TABLET PO SCH (08:06)
[2021-04-10] MEDS: ENOXAPARIN 40 MG/0.4 ML SYRINGE SQ SCH (08:06)
[2021-04-10] MEDS: bisacodyL 10 MG SUPP RECTAL SCH (08:06)
[2021-04-10 08:44] LABS: African American GFR (CKD) >90 (>60 ml/min/1.73 sqM); Anion Gap 8 mmol/L; Blood Urea Nitrogen 11 mg/dL (7-17); Calcium 7.4 mg/dL (8.4-10.2); Carbon Dioxide 19 mmol/L (22-30); Chloride 103 mmol/L (98-107); Glucose 92 mg/dL (74-99); Non-African American GFR(CKD) >90 (>60 ml/min/1.73 sqM); Potassium 3.9 mmol/L (3.5-5.1); Sodium 130 mmol/L (137-145)
[2021-04-10] MEDS: DICYCLOMINE 20 MG TAB PO PRN ×2 (10:46→16:18)
--- NOTE | 2021-04-10 16:06 | P.PN ---
Subjective Progress Note Date: 04/10/21 This is a 61 year old female recently admitted with nausea and vomiting and found to be dehydrated and is being closely monitored. Patient currently active in chemo for stage IV pancreatic cancer with metastasis. Patient is being followed by oncology as well as surgery as patient abdomen continues to be d istended and abdomen pelvis shows possible ileus. Surgery recommending continuing with conservative management and being started on dulcolax suppositories. Patient continues with occasional nausea and denies any vomiting or bowel movements at this time. Patient ct also showed severe left renal artery stenosis at the aortic bifurcation and cardiology consulted. 04/09/2021 Patient is seen in follow-up this morning more awake and alert sitting up at the side of the bed continues to have minimal hiccups and burping noted on exam. Patient states she had soft bowel movement and passing gas after breakfast today and tolerating oral intake although intake continues to be poor. Patient did use Dulcolax suppository yesterday although per nursing staff refused today. Cardiology consulted for severe left renal artery stenosis and discussing with Dr. Hardy about the CT findings. White blood count is 6.5 with a hemoglobin of 10.6, sodium is 131 with a potassium of 3.2 and will replace, current creatinine is 0.48. Potassium also found to be 1.5 and replacing and will repeat labs. Patient states she feels her pain is controlled at this time and continues with nausea which she states is chronic and denies any episodes of vomiting. Surgery also following and continuing with conservative management and repeat abdominal x-ray this morning shows prominent air-filled loops of colon with scattered air- fluid levels with no obstruction identified but continues with possible ileus. Further discussion to be had as well with daughter and patient about possible hospice care as patient had mentioned she does not want to continue with chemotherapy. 04/10/2021 Patient is seen this morning tolerating clear liquids stating she is hungry and asking for toast. Surgery following an continuing with conservative management for ileus and will need to discuss with surgery about advancing diet. Patient is passing gas and actively having bowel movements. Magnesium slightly improved today at 1.8 and will continue to monitor. Sodium is 130, potassium improved at 3.9, current creatinine is 0.43. Patient continues with nausea and denies any vomiting. Patient denies any chest pain or shortness of breath. Patient has continued abdominal distention and does receive palliative paracentesis on a weekly basis. Scheduled for paracentesis tomorrow. Oncology to speak with daughter today about hospice and plans moving forward. Review of systems: Constitutional: reports of fatigue, no reports of fever, or chills Cardiovascular: No reports of chest pain or palpitations Respiratory: No reports of shortness of breath or cough GI: reports of nausea which is chronic, denies vomiting, or diarrhea, abdominal discomfort and distention continued, reports of feeling hungry : No reports of dysuria or retention Neurovascular: Reports generalized weakness All medications have been reviewed Objective - Vital Signs Vital signs: Vital Signs Temp 97.7 F 04/10/21 04:57 Pulse 113 H 04/10/21 04:57 Resp 16 04/10/21 04:57 BP 104/80 04/10/21 04:57 Pulse Ox 99 04/10/21 04:57 Intake & Output 04/09/21 04/10/21 04/10/21 18:59 06:59 18:59 Intake Total 950 1190 Balance 950 1190 Intake: Intake, IV Titration 950 600 Amount 0.9% NaCl with KCl 40 Meq 750 600 /l 1,000 ml @ 75 mls/hr IV .[id number] [facility] Rx#: [id number] Magnesium Sulfate-D5w Pmx 200 1 gm In Dextrose/Water 1 100ml.bag @ 100 mls/hr IVPB Q1H [facility] Rx#: [id number] Oral 590 Other: Voiding Method Toilet # Voids 2 # Bowel Movements 1 - Exam Patient is sitting up in bed, awake alert and oriented x3. On room air, afebrile, ill-appearing, emaciated HEENT: Normocephalic. Neck is supple. Pupils reactive. Nostrils clear. Oral cavity is moist. Neck reveals no JVD, carotid bruits, or thyromegaly. Respiratory: diminished breath sounds with no wheezing or rhonchi noted. CARDIAC: S1, S2 are muffled ABDOMEN: distended. Bowel sounds noted. No organomegaly. No abdominal bruits. mild tenderness noted Extremities: reveal no edema. No clubbing or cyanosis Neurologically awake, alert, oriented x3. No focal deficits noted. Diffusely weak. Skin: No rash or skin lesions. Psychiatric: Cooperative. Non-suicidal Musculoskeletal: No joint swelling or deformity. - Labs CBC & Chem 7: 04/09/21 05:28 04/10/21 05:53 Labs: Microbiology - Last 24 Hours (Table) 04/06/21 15:45 Blood Culture - Preliminary Blood No Growth after 72 hours Assessment and Plan Assessment: stage IV pancreatic cancer with metastasis on chemotherapy CVD dehydration and weakness, present on admission Increased WBC, possible sepsis, present on admission, improved Hyponatremia Severe left renal artery stenosis as noted on CT possible ileus hypokalemia, replaced and improved hypomagnesemia, replaced and improved Hypoalbuminemia with severe protein calorie malnutrition GERD hypertension hyperlipidemia History of anxiety continued ongoing nicotine dependence No code Plan: continue with current medications. Patient continues on gentle IV hydration and antiemetics along with thorazine for continuous hiccups. Surgery and oncology following. CT findings of severe Left renal artery stenosis noted at the aortic bifurcation and will need outpatient follow-up with Dr. Hardy per cardiology recommendations. Patient is currently receiving chemo treatment with next round being next week although patient is refusing any further chemotherapy and discussing with her daughter about possible hospice. Surgery recommending medical management and will start some small sips of clear liquid diet and dulcolax suppositories. Patient did eventually use a Dulcolax suppository yesterday and had a bowel movement with gas passing today and refused Dulcolax suppositories today. Patient continues to have bowel movements and tolerating clear liquids and requesting an increase in diet she feels hungry. Will replace electrolytes per protocol and repeat labs. Referral to hospice will be placed when warranted. Patient receives weekly paracentesis for abdominal distention and ascites on Fridays and is scheduled for paracentesis tomorrow.
[2021-04-10] MEDS: ONDANSETRON 4 MG/2 ML VIAL IVP PRN (16:16)
--- NOTE | 2021-04-10 16:39 | P.PN ---
Subjective Progress Note Date: 04/10/21 Principal diagnosis: Intractable N,V In f/u pt is sitting up at bedside, she is asking for solid food today, she expresses having an appetite. She has had watery stool with some bits informed, her abdominal cramping is intermittent but can be severe at times, she is not had any nausea or vomiting, she is tolerating all of the clear liquids she has taken in. No fevers. she is independently ambulatory. Objective - Vital Signs Vital signs: Vital Signs Temp 97.8 F 04/10/21 11:59 Pulse 110 H 04/10/21 11:59 Resp 19 04/10/21 11:59 BP 104/75 04/10/21 11:59 Pulse Ox 93 L 04/10/21 11:59 Intake & Output 04/09/21 04/10/21 04/10/21 18:59 06:59 18:59 Intake Total 950 1190 200 Balance 950 1190 200 Weight 56.245 kg Intake: Intake, IV Titration 950 600 200 Amount 0.9% NaCl with KCl 40 Meq 750 600 /l 1,000 ml @ 75 mls/hr IV .[id number] [facility] Rx#: [id number] Magnesium Sulfate-D5w Pmx 200 1 gm In Dextrose/Water 1 100ml.bag @ 100 mls/hr IVPB Q1H [facility] Rx#: [id number] Magnesium Sulfate-D5w Pmx 200 1 gm In Dextrose/Water 1 100ml.bag @ 100 mls/hr IVPB Q1H [facility] Rx#: [id number] Oral 590 Other: Voiding Method Toilet # Voids 2 1 # Bowel Movements 1 1 - Constitutional General appearance: Present: cooperative, thin - EENT Eyes: Present: anicteric sclerae, EOMI ENT: Present: hearing grossly normal, normal oropharynx - Respiratory Respiratory: bilateral: CTA - Cardiovascular Rhythm: regular Heart sounds: normal: S1, S2 Abnormal Heart Sounds: Absent: systolic murmur, diastolic murmur, rub, S3 Gallop , S4 Gallop, click, other - Peripheral edema leg Peripheral Edema: bilateral: None - Gastrointestinal General gastrointestinal: Present: distended, hyperactive bowel sounds, soft, tenderness - Neurologic Neurologic: Present: CNII-XII intact - Musculoskeletal Musculoskeletal: Present: strength equal bilaterally - Psychiatric Psychiatric: Present: A&O x's 3, appropriate affect, intact judgment & insight - Allied health notes Allied health notes reviewed: nursing - Labs CBC & Chem 7: 04/09/21 05:28 04/10/21 05:53 Labs: Abnormal Lab Results - Last 24 Hours (Table) 04/10/21 Range/Units 05:53 Sodium 130 L (137-145) mmol/L Carbon Dioxide 19 L (22-30) mmol/L Creatinine 0.43 L (0.52-1.04) mg/dL Calcium 7.4 L (8.4-10.2) mg/dL Microbiology - Last 24 Hours (Table) 04/06/21 15:45 Blood Culture - Preliminary Blood No Growth after 72 hours Assessment and Plan (1) Intractable nausea and vomiting Narrative/Plan: Improved, cont supportive meds Current Visit: Yes Status: Acute Priority: High Code(s): R11.2 - NAUSEA WITH VOMITING, UNSPECIFIED SNOMED Code(s): 965272572 (2) Abdominal pain Current Visit: Yes Status: Acute Priority: High Code(s): R10.9 - UNSPECIFIED ABDOMINAL PAIN SNOMED Code(s): 51915025 (3) Pancreatic cancer Current Visit: Yes Status: Acute Code(s): C25.9 - MALIGNANT NEOPLASM OF PANCREAS, UNSPECIFIED SNOMED Code(s): 851614238 (4) Peritoneal carcinoma Narrative/Plan: Malignancy of unknown primary. Patient was treated initially for [place] HAND malignancy, no improvements after 3 cycles. She is status post first cycle of treatment for pancreatic primary. Her CBC is stable. Unfortunately, it is impossible to tell if treatment is going to be effective- she has only had 1 cycle. I spoke with her daughter about this last night and pt about it today. Pt has expressed that she does not want any more chemo. We spoke again today about hospice. Patient would really like to have a convers ation with her daughter there. I spoke with her daughter. Plan is for a meeting tomorrow between 1 and 2:00 to discuss patient's wishes and what is the best way to achieve those wishes. Referrals will be made after meeting Surgery as seen pt, they cont to follow. Patient has had liquid as well as some form pieces of stool. Surgical mgmt has made pt more comfortable. Cardiology note reviewed, appreciate evaluation and recommendations. Current Visit: Yes Status: Acute Priority: High Code(s): C48.2 - MALIGNANT NEOPLASM OF PERITONEUM, UNSPECIFIED SNOMED Code(s): 940169025
--- NOTE | 2021-04-10 17:10 | P.PN ---
Subjective Progress Note Date: 04/10/21 Principal diagnosis: Abdominal pain Patient had episodes of vomiting today. Before that she was asking for solid foods. She did have some bowel function. States she had more flatus and stool than normal. Remains bloated. Mild crampy pain. Objective - Vital Signs Vital signs: Vital Signs Temp 97.8 F 04/10/21 11:59 Pulse 110 H 04/10/21 11:59 Resp 19 04/10/21 11:59 BP 104/75 04/10/21 11:59 Pulse Ox 93 L 04/10/21 11:59 Intake & Output 04/09/21 04/10/21 04/10/21 18:59 06:59 18:59 Intake Total 950 1190 200 Balance 950 1190 200 Weight 56.245 kg Intake: Intake, IV Titration 950 600 200 Amount 0.9% NaCl with KCl 40 Meq 750 600 /l 1,000 ml @ 75 mls/hr IV .[id number] [facility] Rx#: [id number] Magnesium Sulfate-D5w Pmx 200 1 gm In Dextrose/Water 1 100ml.bag @ 100 mls/hr IVPB Q1H [facility] Rx#: [id number] Magnesium Sulfate-D5w Pmx 200 1 gm In Dextrose/Water 1 100ml.bag @ 100 mls/hr IVPB Q1H [facility] Rx#: [id number] Oral 590 Other: Voiding Method Toilet # Voids 2 1 # Bowel Movements 1 1 - Exam Abdomen: Distended, mild diffuse tenderness - Labs CBC & Chem 7: 04/09/21 05:28 04/10/21 05:53 Labs: Abnormal Lab Results - Last 24 Hours (Table) 04/10/21 Range/Units 05:53 Sodium 130 L (137-145) mmol/L Carbon Dioxide 19 L (22-30) mmol/L Creatinine 0.43 L (0.52-1.04) mg/dL Calcium 7.4 L (8.4-10.2) mg/dL Microbiology - Last 24 Hours (Table) 04/06/21 15:45 Blood Culture - Preliminary Blood No Growth after 72 hours Assessment and Plan (1) Abdominal pain Narrative/Plan: Patient has had some improved bowel function however did have episodes of vomiting. Patient is considering hospice. May have crackers along with her clear liquids for now. Current Visit: Yes Status: Acute Priority: High Code(s): R10.9 - U NSPECIFIED ABDOMINAL PAIN SNOMED Code(s): 74632277
[2021-04-10] MEDS: chlorproMAZINE 25 MG TAB PO PRN (17:13)
[2021-04-10] MEDS: OLANZapine 5 MG TAB PO SCH (19:54)
[2021-04-11] MEDS: ONDANSETRON 4 MG/2 ML VIAL IVP PRN ×3 (00:23→16:14)
[2021-04-11] MEDS: HYDROmorphone 1 MG/ML 1 ML SYRINGE IVP PRN ×5 (00:23→17:44)
[2021-04-11] MEDS: 0.9% NACL WITH KCL 40 MEQ/L 1,000 ML IV SCH ×2 (04:40→18:20)
[2021-04-11] MEDS: bisacodyL 10 MG SUPP RECTAL SCH (07:52)
[2021-04-11] MEDS: DICYCLOMINE 20 MG TAB PO PRN (07:52)
[2021-04-11] MEDS: ENOXAPARIN 40 MG/0.4 ML SYRINGE SQ SCH (07:52)
[2021-04-11] MEDS: PANTOPRAZOLE 40 MG TABLET PO SCH (07:52)
[2021-04-11 10:11] LABS: African American GFR (CKD) >90 (>60 ml/min/1.73 sqM); Anion Gap 11 mmol/L; Blood Urea Nitrogen 15 mg/dL (7-17); Calcium 7.9 mg/dL (8.4-10.2); Carbon Dioxide 18 mmol/L (22-30); Chloride 102 mmol/L (98-107); Glucose 109 mg/dL (74-99); Non-African American GFR(CKD) >90 (>60 ml/min/1.73 sqM); Potassium 4.9 mmol/L (3.5-5.1); Sodium 131 mmol/L (137-145)
[2021-04-11] MEDS: METOCLOPRAMIDE 5 MG/ML 2 ML VIAL IVP SCH ×3 (11:13→23:49)
--- NOTE | 2021-04-11 12:08 | P.PN ---
Subjective Progress Note Date: 04/11/21 Principal diagnosis: Abdominal pain Patient feels somewhat worse today. She has had episodes of nausea and vomiting overnight. Feels more bloated. Mild discomfort. Appetite remains diminished. Objective - Vital Signs Vital signs: Vital Signs Temp 97.7 F 04/11/21 04:24 Pulse 52 L 04/11/21 04:24 Resp 16 04/11/21 08:00 BP 113/83 04/11/21 04:24 Pulse Ox 100 04/11/21 04:24 Intake & Output 04/10/21 04/11/21 04/11/21 18:59 06:59 18:59 Intake Total 200 1200 Output Total 150 Balance 200 1050 Weight 56.245 kg Intake: Intake, IV Titration 200 900 Amount 0.9% NaCl with KCl 40 Meq 900 /l 1,000 ml @ 75 mls/hr IV .[id number] [facility] Rx#: [id number] Magnesium Sulfate-D5w Pmx 200 1 gm In Dextrose/Water 1 100ml.bag @ 100 mls/hr IVPB Q1H [facility] Rx#: [id number] Oral 300 Output: Oral Regurgitation 150 Other: Voiding Method Toilet Toilet # Voids 1 2 # Bowel Movements 1 - Exam Abdomen: Soft, moderate distention, mild diffuse tenderness - Labs CBC & Chem 7: 04/09/21 05:28 04/11/21 04:43 Labs: Abnormal Lab Results - Last 24 Hours (Table) 04/11/21 Range/Units 04:43 Sodium 131 L (137-145) mmol/L Carbon Dioxide 18 L (22-30) mmol/L Creatinine 0.48 L (0.52-1.04) mg/dL Glucose 109 H (74-99) mg/dL Calcium 7.9 L (8.4-10.2) mg/dL Microbiology - Last 24 Hours (Table) 04/06/21 15:45 Blood Culture - Preliminary Blood No Growth after 96 hours Assessment and Plan (1) Abdominal pain Narrative/Plan: Patient with persistent ileus. Now having episodes of nausea and vomiting. Will place nasogastric tube to suction. Patient apparently has meeting with oncology today to discuss hospice care. We'll follow. Current Visit: Yes Status: Acute Priority: High Code(s): R10.9 - UNSPECIFIED ABDOMINAL PAIN SNOMED Code(s): 03264007
--- NOTE | 2021-04-11 16:01 | P.PN ---
Subjective Progress Note Date: 04/11/21 This is a 61 year old female recently admitted with nausea and vomiting and found to be dehydrated and is being closely monitored. Patient currently active in chemo for stage IV pancreatic cancer with metastasis. Patient is being followed by oncology as well as surgery as patient abdomen continues to be d istended and abdomen pelvis shows possible ileus. Surgery recommending continuing with conservative management and being started on dulcolax suppositories. Patient continues with occasional nausea and denies any vomiting or bowel movements at this time. Patient ct also showed severe left renal artery stenosis at the aortic bifurcation and cardiology consulted. 04/09/2021 Patient is seen in follow-up this morning more awake and alert sitting up at the side of the bed continues to have minimal hiccups and burping noted on exam. Patient states she had soft bowel movement and passing gas after breakfast today and tolerating oral intake although intake continues to be poor. Patient did use Dulcolax suppository yesterday although per nursing staff refused today. Cardiology consulted for severe left renal artery stenosis and discussing with Dr. Haryd about the CT findings. White blood count is 6.5 with a hemoglobin of 10.6, sodium is 131 with a potassium of 3.2 and will replace, current creatinine is 0.48. Potassium also found to be 1.5 and replacing and will repeat labs. Patient states she feels her pain is controlled at this time and continues with nausea which she states is chronic and denies any episodes of vomiting. Surgery also following and continuing with conservative management and repeat abdominal x-ray this morning shows prominent air-filled loops of colon with scattered air- fluid levels with no obstruction identified but continues with possible ileus. Further discussion to be had as well with daughter and patient about possible hospice care as patient had mentioned she does not want to continue with chemotherapy. 04/10/2021 Patient is seen this morning tolerating clear liquids stating she is hungry and asking for toast. Surgery following an continuing with conservative management for ileus and will need to discuss with surgery about advancing diet. Patient is passing gas and actively having bowel movements. Magnesium slightly improved today at 1.8 and will continue to monitor. Sodium is 130, potassium improved at 3.9, current creatinine is 0.43. Patient continues with nausea and denies any vomiting. Patient denies any chest pain or shortness of breath. Patient has continued abdominal distention and does receive palliative paracentesis on a weekly basis. Scheduled for paracentesis tomorrow. Oncology to speak with daughter today about hospice and plans moving forward. 04/11/2021 Patient is seen in follow-up this morning and is having worsening nausea and multiple episodes of vomiting throughout the night with increased abdominal d istention. Patient states she is not passing much gas and abdomen feels more distended. Surgery following as well and patient will be getting an NG tube to help assist with decompression. Patient also receives weekly paracentesis for abdominal ascites and is scheduled today. Discussion was had with the daughter and will be proceeding with a hospice meeting today with [facility]. Patient and family agreeable with hospice but continues to have increasing abdominal discomfort, continued ileus, worsening nausea and vomiting and does not feel comfortable going home at this time. [facility] has met with the patient's daughter inpatient at the bedside and would like to go home with hospice once stabilized. Plans are for early next week. Sodium slightly improved today at 131, potassium is 4.9, current creatinine is stable at 0.48. Magnesium is 2.1 today. Blood pressure and heart rate slightly elevated and will resume metoprolol and monitor closely. Patient continues to not have much relief with Zofran and will add Reglan as well. Review of systems: Constitutional: reports of fatigue, no reports of fever, or chills Cardiovascular: No reports of chest pain or palpitations Respiratory: No reports of shortness of breath or cough GI: reports of nausea and vomiting multiple times since last night, increasing abdominal distention and abdominal discomfort and not passing gas or bowel movements : No reports of dysuria or retention Neurovascular: Reports generalized weakness All medications have been reviewed Objective - Vital Signs Vital signs: Vital Signs Temp 97.7 F 04/11/21 04:24 Pulse 52 L 04/11/21 04:24 Resp 16 04/11/21 04:24 BP 113/83 04/11/21 04:24 Pulse Ox 100 04/11/21 04:24 Intake & Output 04/10/21 04/11/21 04/11/21 18:59 06:59 18:59 Intake Total 200 1200 Output Total 150 Balance 200 1050 Weight 56.245 kg Intake: Intake, IV Titration 200 900 Amount 0.9% NaCl with KCl 40 Meq 900 /l 1,000 ml @ 75 mls/hr IV .[id number] [facility] Rx#: [id number] Magnesium Sulfate-D5w Pmx 200 1 gm In Dextrose/Water 1 100ml.bag @ 100 mls/hr IVPB Q1H [facility] Rx#: [id number] Oral 300 Output: Oral Regurgitation 150 Other: Voiding Method Toilet # Voids 1 2 # Bowel Movements 1 - Exam Patient is lying in bed, awake alert and oriented x3. On room air, afebrile, ill-appearing, emaciated HEENT: Normocephalic. Neck is supple. Pupils reactive. Nostrils clear. Oral cavity is moist. Neck reveals no JVD, carotid bruits, or thyromegaly. Respiratory: diminished breath sounds with no wheezing or rhonchi noted. CARDIAC: S1, S2 are muffled ABDOMEN: Increasingly distended. Taut sluggish bowel sounds. No organomegaly. No abdominal bruits. mild tenderness noted Extremities: reveal no edema. No clubbing or cyanosis Neurologically awake, alert, oriented x3. No focal deficits noted. Diffusely weak. Skin: No rash or skin lesions. Psychiatric: Cooperative. Non-suicidal Musculoskeletal: No joint swelling or deformity. - Labs CBC & Chem 7: 04/09/21 05:28 04/11/21 04:43 Labs: Microbiology - Last 24 Hours (Table) 04/06/21 15:45 Blood Culture - Preliminary Blood No Growth after 96 hours Assessment and Plan Assessment: stage IV pancreatic cancer with metastasis on chemotherapy CVD dehydration and weakness, present on admission Increased WBC, possible sepsis, present on admission, improved Hyponatremia Severe left renal artery stenosis as noted on CT possible ileus hypokalemia, replaced and improved hypomagnesemia, replaced and improved Hypoalbuminemia with severe protein calorie malnutrition GERD hypertension hyperlipidemia History of anxiety continued ongoing nicotine dependence No code Plan: continue with current medications. Blood pressure and heart rate elevated and will resume metoprolol. Patient is scheduled to have paracentesis which she normally receives every Wednesday palliative for continued abdominal distention related to ascites. Patient is having increasing nausea and vomiting and will add Reglan and continue with Zofran and surgery following an patient is having an NG tube placed for decompression. Family and patient met with [facility] and are agreeable to go home with hospice once stabilized as she does not feel ready to discharge due to her increasing abdominal discomfort and continued vomiting at this time. Plans are for early next week for discharge to home and will continue to monitor.
[2021-04-11] MEDS: METOPROLOL SUCCINATE (ER) 25 MG TAB.ER.24H PO SCH (16:18)
[2021-04-11] MEDS: OLANZapine 5 MG TAB PO SCH (19:59)
[2021-04-12] MEDS: HYDROmorphone 1 MG/ML 1 ML SYRINGE IVP PRN ×8 (00:05→23:01)
[2021-04-12] MEDS: ONDANSETRON 4 MG/2 ML VIAL IVP PRN (02:57)
[2021-04-12] MEDS: METOCLOPRAMIDE 5 MG/ML 2 ML VIAL IVP SCH ×3 (05:39→17:07)
[2021-04-12] MEDS: 0.9% NACL WITH KCL 40 MEQ/L 1,000 ML IV SCH (05:57)
[2021-04-12] MEDS: bisacodyL 10 MG SUPP RECTAL SCH (07:53)
[2021-04-12] MEDS: PANTOPRAZOLE 40 MG TABLET PO SCH (07:53)
[2021-04-12] MEDS: DICYCLOMINE 20 MG TAB PO PRN (07:53)
[2021-04-12] MEDS: METOPROLOL SUCCINATE (ER) 25 MG TAB.ER.24H PO SCH (07:53)
[2021-04-12] MEDS: ENOXAPARIN 40 MG/0.4 ML SYRINGE SQ SCH (07:53)
[2021-04-12 10:06] LABS: African American GFR (CKD) 121.1 (60.0-200.0); Anion Gap 12.7 mmol/L (4.00-12.00); Calcium 7.1 mg/dL (8.7-10.3); Carbon Dioxide 22.3 mmol/L (21.6-31.8); Non-African American GFR(CKD) 104.5 (60.0-200.0); Potassium 4.6 mmol/L (3.5-5.5)
--- NOTE | 2021-04-12 12:27 | PN ---
PROGRESS NOTE DATE OF SERVICE: 04/12/2021 CHIEF COMPLAINT: Abdominal pain. INTERVAL HISTORY: Mckayla is seen today as a followup. She has some abdominal distention. However, she stated that she is feeling a little better today and she is a little more comfortable. She has some hiccups, but she did pass some gas. CURRENT MEDICATION: Reviewed on her electronic medical record. PHYSICAL EXAMINATION: She is alert, oriented x3. She does not appear to be in distress. Her vital signs are temperature 98.2, pulse is 58, respirations 18, blood pressure 147/87. HEENT: Normocephalic, atraumatic. She has a nasogastric tube. NECK: Supple. LUNGS: Clear. Heart is tachy, regular. Abdomen is distended with hypoactive bowel sounds. Extremities reveal no significant edema. LABORATORY DATA: WBC of 6.5, hemoglobin 10.8, hematocrit is 33.1, platelets are 155. Sodium 139, potassium 4.0, chloride 104, BUN is 21, creatinine 0.5, calcium is 7.1. 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 The patient has progressed on carboplatin, Taxol, and now she has started of FOLFIRINOX regimen. However, her overall performance status has been declining. RECOMMENDATION: 1. Overall prognosis is very guarded. 2. The patient and her family have met with hospice and they are considering to proceed with hospice care, which I believe is very reasonable. MMSCOOBY / PRASHANT: [id number] /
--- NOTE | 2021-04-12 13:08 | P.PN ---
Progress Note - Text Progress Note Date: 04/12/21 Patient has nasogastric tube in place. Soft with nausea. She is extremely cachectic. She'll continue receive supportive care. I'm unclear if she is entering hospice
--- NOTE | 2021-04-12 14:04 | P.PN ---
Subjective 61 year old female recently admitted with nausea and vomiting and found to be dehydrated and is being closely monitored. Patient currently active in chemo for stage IV pancreatic cancer with metastasis. Patient is being followed by oncology as well as surgery as patient abdomen continues to be distended and abdomen pelvis shows possible ileus. Surgery recommending continuing with conservative management and being started on dulcolax suppositories. Patient continues with occasional nausea and denies any vomiting or bowel movements at this time. Patient ct also showed severe left renal artery stenosis at the aortic bifurcation and cardiology consulted. 04/09/2021 Patient is seen in follow-up this morning more awake and alert sitting up at the side of the bed continues to have minimal hiccups and burping noted on exam. Patient states she had soft bowel movement and passing gas after breakfast today and tolerating oral intake although intake continues to be poor. Patient did use Dulcolax suppository yesterday although per nursing staff refused today. Cardiology consulted for severe left renal artery stenosis and discussing with Damien Hardy about the CT findings. White blood count is 6.5 with a hemoglobin of 10.6, sodium is 131 with a potassium of 3.2 and will replace, current creatinine is 0.48. Potassium also found to be 1.5 and replacing and will repeat labs. Patient states she feels her pain is controlled at this time and continues with nausea which she states is chronic and denies any episodes of vomiting. Surgery also following and continuing with conservative management and repeat abdominal x-ray this morning shows prominent air-filled loops of colon with scattered air- fluid levels with no obstruction identified but continues with possible ileus. Further discussion to be had as well with daughter and patient about possible hospice care as patient had mentioned she does not want to continue with chemotherapy. 04/10/2021 Patient is seen this morning tolerating clear liquids stating she is hungry and asking for toast. Surgery following an continuing with conservative management for ileus and will need to discuss with surgery about advancing diet. Patient is passing gas and actively having bowel movements. Magnesium slightly improved today at 1.8 and will continue to monitor. Sodium is 130, potassium improved at 3.9, current creatinine is 0.43. Patient continues with nausea and denies any vomiting. Patient denies any chest pain or shortness of breath. Patient has continued abdominal distention and does receive palliative paracentesis on a weekly basis. Scheduled for paracentesis tomorrow. Oncology to speak with daughter today about hospice and plans moving forward. 04/11/2021 Patient is seen in follow-up this morning and is having worsening nausea and multiple episodes of vomiting throughout the night with increased abdominal distention. Patient states she is not passing much gas and abdomen feels more distended. Surgery following as well and patient will be getting an NG tube to help assist with decompression. Patient also receives weekly paracentesis for abdominal ascites and is scheduled today. Discussion was had with the daughter and will be proceeding with a hospice meeting today with [facility]. Patient and family agreeable with hospice but continues to have increasing abdominal discomfort, continued ileus, worsening nausea and vomiting and does not feel comfortable going home at this time. [facility] has met with the patient's daughter inpatient at the bedside and would like to go home with hospice once stabilized. Plans are for early next week. Sodium slightly improved today at 131, potassium is 4.9, current creatinine is stable at 0.48. Magnesium is 2.1 today. Blood pressure and heart rate slightly elevated and will resume metoprolol and monitor closely. Patient continues to not have much relief with Zofran and will add Reglan as well. 04/12/2021 Patient has ileus still has an NG tube and an NG tube is still draining. Patient most probably will be discharged on Wednesday with hospice although family still in the process of making the decision. Until then patient will be medically treated Review of systems: Constitutional: reports of fatigue, no reports of fever, or chills Cardiovascular: No reports of chest pain or palpitations Respiratory: No reports of shortness of breath or cough GI: reports of nausea and vomiting multiple times since last night, increasing abdominal distention and abdominal discomfort and not passing gas or bowel movements : No reports of dysuria or retention Neurovascular: Reports generalized weakness All medications have been reviewed - Exam Patient is lying in bed, awake alert and oriented x3. On room air, afebrile, ill-appearing, emaciated HEENT: Normocephalic. Neck is supple. Pupils reactive. Nostrils clear. Oral cavity is moist. Neck reveals no JVD, carotid bruits, or thyromegaly. Respiratory: diminished breath sounds with no wheezing or rhonchi noted. CARDIAC: S1, S2 are muffled ABDOMEN: Increasingly distended. Taut sluggish bowel sounds. No organomegaly. No abdominal bruits. mild tenderness noted Extremities: reveal no edema. No clubbing or cyanosis Neurologically awake, alert, oriented x3. No focal deficits noted. Diffusely weak. Skin: No rash or skin lesions. Psychiatric: Cooperative. Non-suicidal Musculoskeletal: No joint swelling or deformity. Assessment and Plan Assessment: -Ileus: Patient has an NG tube with her drainage. stage IV pancreatic cancer with metastasis on chemotherapy CVD dehydration and weakness, present on admission Leukocytosis: Secondary to ileus Hyponatremia Severe left renal artery stenosis as noted on CT hypokalemia, replaced and improved hypomagnesemia, replaced and improved Hypoalbuminemia with severe protein calorie malnutrition GERD hypertension hyperlipidemia History of anxiety continued ongoing nicotine dependence No code Possibility of discharge on Wednesday on hospice Objective - Vital Signs Vital signs: Vital Signs Temp 98.2 F 04/12/21 11:05 Pulse 58 L 04/12/21 11:05 Resp 18 04/12/21 11:05 BP 147/87 04/12/21 11:05 Pulse Ox 95 04/12/21 11:05 Intake & Output 04/11/21 04/12/21 04/12/21 18:59 06:59 18:59 Intake Total 0 Output Total 1525 Balance -1525 0 Weight 56.245 kg Intake: Oral 0 Output: Gastric Drainage 1525 Other: Voiding Method Toilet Toilet Toilet # Voids 3 - Labs CBC & Chem 7: 04/09/21 05:28 04/12/21 05:46 Labs: Abnormal Lab Results - Last 24 Hours (Table) 04/12/21 Range/Units 05:46 Anion Gap 12.70 H (4.00-12.00) mmol/L Creatinine 0.5 L (0.6-1.5) mg/dL BUN/Creatinine Ratio 42.00 H (12.00-20.00) Ratio Calcium 7.1 L (8.7-10.3) mg/dL Microbiology - Last 24 Hours (Table) 04/06/21 15:45 Blood Culture - Preliminary Blood No Growth after 120 hours
[2021-04-12] MEDS: OLANZapine 5 MG TAB PO SCH (21:33)
[2021-04-13] MEDS: chlorproMAZINE 25 MG TAB PO PRN (00:43)
[2021-04-13] MEDS: METOCLOPRAMIDE 5 MG/ML 2 ML VIAL IVP SCH ×4 (00:43→17:26)
[2021-04-13] MEDS: 0.9% NACL WITH KCL 40 MEQ/L 1,000 ML IV SCH ×2 (03:18→07:21)
[2021-04-13] MEDS: HYDROmorphone 1 MG/ML 1 ML SYRINGE IVP PRN ×6 (03:20→21:02)
[2021-04-13 06:20] LABS: African American GFR (CKD) >90 (>60 ml/min/1.73 sqM); Anion Gap 7 mmol/L; Blood Urea Nitrogen 21 mg/dL (7-17); Calcium 7.6 mg/dL (8.4-10.2); Carbon Dioxide 21 mmol/L (22-30); Chloride 108 mmol/L (98-107); Glucose 102 mg/dL (74-99); Non-African American GFR(CKD) >90 (>60 ml/min/1.73 sqM); Potassium 5.1 mmol/L (3.5-5.1); Sodium 136 mmol/L (137-145)
[2021-04-13] MEDS: METOPROLOL SUCCINATE (ER) 25 MG TAB.ER.24H PO SCH (07:15)
[2021-04-13] MEDS: ENOXAPARIN 40 MG/0.4 ML SYRINGE SQ SCH (07:15)
[2021-04-13] MEDS: bisacodyL 10 MG SUPP RECTAL SCH (07:15)
[2021-04-13] MEDS: PANTOPRAZOLE 40 MG TABLET PO SCH (07:15)
--- NOTE | 2021-04-13 09:57 | P.PN ---
Subjective 61 year old female recently admitted with nausea and vomiting and found to be dehydrated and is being closely monitored. Patient currently active in chemo for stage IV pancreatic cancer with metastasis. Patient is being followed by oncology as well as surgery as patient abdomen continues to be distended and abdomen pelvis shows possible ileus. Surgery recommending continuing with conservative management and being started on dulcolax suppositories. Patient continues with occasional nausea and denies any vomiting or bowel movements at this time. Patient ct also showed severe left renal artery stenosis at the aortic bifurcation and cardiology consulted. 04/09/2021 Patient is seen in follow-up this morning more awake and alert sitting up at the side of the bed continues to have minimal hiccups and burping noted on exam. Patient states she had soft bowel movement and passing gas after breakfast today and tolerating oral intake although intake continues to be poor. Patient did use Dulcolax suppository yesterday although per nursing staff refused today. Cardiology consulted for severe left renal artery stenosis and discussing with Damien Hardy about the CT findings. White blood count is 6.5 with a hemoglobin of 10.6, sodium is 131 with a potassium of 3.2 and will replace, current creatinine is 0.48. Potassium also found to be 1.5 and replacing and will repeat labs. Patient states she feels her pain is controlled at this time and continues with nausea which she states is chronic and denies any episodes of vomiting. Surgery also following and continuing with conservative management and repeat abdominal x-ray this morning shows prominent air-filled loops of colon with scattered air- fluid levels with no obstruction identified but continues with possible ileus. Further discussion to be had as well with daughter and patient about possible hospice care as patient had mentioned she does not want to continue with chemotherapy. 04/10/2021 Patient is seen this morning tolerating clear liquids stating she is hungry and asking for toast. Surgery following an continuing with conservative management for ileus and will need to discuss with surgery about advancing diet. Patient is passing gas and actively having bowel movements. Magnesium slightly improved today at 1.8 and will continue to monitor. Sodium is 130, potassium improved at 3.9, current creatinine is 0.43. Patient continues with nausea and denies any vomiting. Patient denies any chest pain or shortness of breath. Patient has continued abdominal distention and does receive palliative paracentesis on a weekly basis. Scheduled for paracentesis tomorrow. Oncology to speak with daughter today about hospice and plans moving forward. 04/11/2021 Patient is seen in follow-up this morning and is having worsening nausea and multiple episodes of vomiting throughout the night with increased abdominal distention. Patient states she is not passing much gas and abdomen feels more distended. Surgery following as well and patient will be getting an NG tube to help assist with decompression. Patient also receives weekly paracentesis for abdominal ascites and is scheduled today. Discussion was had with the daughter and will be proceeding with a hospice meeting today with [facility]. Patient and family agreeable with hospice but continues to have increasing abdominal discomfort, continued ileus, worsening nausea and vomiting and does not feel comfortable going home at this time. [facility] has met with the patient's daughter inpatient at the bedside and would like to go home with hospice once stabilized. Plans are for early next week. Sodium slightly improved today at 131, potassium is 4.9, current creatinine is stable at 0.48. Magnesium is 2.1 today. Blood pressure and heart rate slightly elevated and will resume metoprolol and monitor closely. Patient continues to not have much relief with Zofran and will add Reglan as well. 04/12/2021 Patient has ileus still has an NG tube and an NG tube is still draining. Patient most probably will be discharged on Wednesday with hospice although family still in the process of making the decision. Until then patient will be medically treated 04/13/2021 Patient still has a significant NG tube drainage and patient potassium is high IV fluids will be switched to normal saline at 100 mL per hour. Patient the is passing gas didn't have a bowel movement yet. Review of systems: Constitutional: reports of fatigue, no reports of fever, or chills Cardiovascular: No reports of chest pain or palpitations Respiratory: No reports of shortness of breath or cough GI: reports of nausea and vomiting multiple times since last night, increasing abdominal distention and abdominal discomfort and not passing gas or bowel movements : No reports of dysuria or retention Neurovascular: Reports generalized weakness All medications have been reviewed - Exam Patient is lying in bed, awake alert and oriented x3. On room air, afebrile, ill-appearing, emaciated HEENT: Normocephalic. Neck is supple. Pupils reactive. Nostrils clear. Oral cavity is moist. Neck reveals no JVD, carotid bruits, or thyromegaly. Respiratory: diminished breath sounds with no wheezing or rhonchi noted. CARDIAC: S1, S2 are muffled ABDOMEN: Increasingly distended. Taut sluggish bowel sounds. No organomegaly. No abdominal bruits. mild tenderness noted Extremities: reveal no edema. No clubbing or cyanosis Neurologically awake, alert, oriented x3. No focal deficits noted. Diffusely weak. Skin: No rash or skin lesions. Psychiatric: Cooperative. Non-suicidal Musculoskeletal: No joint swelling or deformity. Assessment and Plan Assessment: -Ileus: Patient has an NG tube with her drainage. stage IV pancreatic cancer with metastasis on chemotherapy CVD dehydration and weakness, present on admission Leukocytosis: Secondary to ileus Hyponatremia Severe left renal artery stenosis as noted on CT hypokalemia, replaced and improved hypomagnesemia, replaced and improved Hypoalbuminemia with severe protein calorie malnutrition GERD hypertension hyperlipidemia History of anxiety continued ongoing nicotine dependence No code Possibility of discharge on Wednesday on hospice Objective - Vital Signs Vital signs: Vital Signs Temp 97.1 F L 04/13/21 07:16 Pulse 118 H 04/13/21 07:16 Resp 18 04/13/21 07:16 BP 108/86 04/13/21 07:16 Pulse Ox 95 04/13/21 07:16 Intake & Output 04/12/21 04/13/21 04/13/21 18:59 06:59 18:59 Output Total 600 900 Balance -600 -900 Output: Gastric Drainage 600 900 Other: Voiding Method Toilet Toilet # Voids 3 3 1 - Labs CBC & Chem 7: 04/09/21 05:28 04/13/21 05:30 Labs: Abnormal Lab Results - Last 24 Hours (Table) 04/12/21 04/13/21 Range/Units 05:46 05:30 Sodium 136 L (137-145) mmol/L Chloride 108 H (98-107) mmol/L Carbon Dioxide 21 L (22-30) mmol/L Anion Gap 12.70 H (4.00-12.00) mmol/L BUN 21 H (7-17) mg/dL Creatinine 0.5 L 0.48 L (0.6-1.5) mg/dL BUN/Creatinine Ratio 42.00 H (12.00-20.00) Ratio Glucose 102 H (74-99) mg/dL Calcium 7.1 L 7.6 L (8.7-10.3) mg/dL Microbiology - Last 24 Hours (Table) 04/06/21 15:45 Blood Culture - Final Blood No Growth after 144 hours
[2021-04-13] MEDS: SODIUM CHLORIDE 0.9% 1,000 ML IV SCH ×2 (10:00→21:03)
[2021-04-13] MEDS: ONDANSETRON 4 MG/2 ML VIAL IVP PRN (14:27)
--- NOTE | 2021-04-13 19:08 | PN ---
PROGRESS NOTE DATE OF SERVICE: 04/13/2021 CHIEF COMPLAINT: Weak and tired. INTERVAL HISTORY: Mckayla seen today as a followup. She remains weak, tired. She has NG tube in and she continues to have some abdominal pain, but she feels a little bit more comfortable. MEDICATION: Reviewed in electronic medical record. PHYSICAL EXAM: She is alert and x3. Her vital signs show temperature 98.0, pulse 97, respiration 18, blood pressure 166/94. HEENT: Normocephalic, atraumatic. Neck is supple. Lungs are clear. Heart is regular. Abdomen is distended. Hypoactive bowel sounds. Extremities reveal 1+ edema at both ankles. IMPRESSION: Peritoneal carcinomatosis. The patient has failed systemic treatment. RECOMMENDATIONS: Overall prognosis poor. The patient and family are aware of that. They plan to proceed with hospice care next week. MMLUIL / PRASHANT: [id number] /
[2021-04-13 20:21] VITALS: RESP 16
[2021-04-13] MEDS: OLANZapine 5 MG TAB PO SCH (21:03)
[2021-04-14] MEDS: METOCLOPRAMIDE 5 MG/ML 2 ML VIAL IVP SCH ×3 (00:06→11:13)
[2021-04-14] MEDS: HYDROmorphone 1 MG/ML 1 ML SYRINGE IVP PRN ×3 (00:10→10:02)
[2021-04-14] MEDS: SODIUM CHLORIDE 0.9% 1,000 ML IV SCH (07:42)
[2021-04-14] MEDS: bisacodyL 10 MG SUPP RECTAL SCH (07:43)
[2021-04-14] MEDS: METOPROLOL SUCCINATE (ER) 25 MG TAB.ER.24H PO SCH (07:44)
[2021-04-14] MEDS: ENOXAPARIN 40 MG/0.4 ML SYRINGE SQ SCH (07:51)
[2021-04-14] MEDS: PANTOPRAZOLE 40 MG TABLET PO SCH (07:51)
[2021-04-14 09:40] LABS: African American GFR (CKD) 121.1 (60.0-200.0); Calcium 7.3 mg/dL (8.7-10.3); Non-African American GFR(CKD) 104.5 (60.0-200.0); Potassium 4.3 mmol/L (3.5-5.5)
[2021-04-14 11:37] VITALS: BP 164/97; PULSE 109; TEMP 97.9
--- NOTE | 2021-04-14 12:31 | P.PN ---
Progress Note - Text Progress Note Date: 04/14/21 Patient's had some mild nausea. She's had no emesis. She is tolerating full liquid diet. On exam her vital signs are stable. Abdomen soft. Resolving ileus/partial small bowel charge. Patient will remain on full liquid diet
--- NOTE | 2021-04-14 16:09 | P.DS ---
Providers Date of admission: 04/06/21 13:54 Expected date of discharge: 04/14/21 Attending physician: Latoya Montoya Consults: 04/06/21 13:54 Consult Physician Routine Consulting Provider: Moreno Toure Consult Reason/Comments: Stage IV pancreatic cancer Do you want consulting provider notified?: Yes 04/07/21 18:00 Consult Physician Routine Consulting Provider: Tyler Taylor Consult Reason/Comments: possible ileus, obstruction Do you want consulting provider notified?: Yes 04/08/21 17:34 Consult Physician Routine Consulting Provider: Eric Hardy Consult Reason/Comments: extrinic compression of lt renal artery-? candidate for stent Do you want consulting provider notified?: Yes, Notify in am Primary care physician: Randall Moore Hospital Course: Final diagnosis -Ileus, improving -stage IV pancreatic cancer with metastasis on chemotherapy -CVD dehydration and weakness, present on admission -Leukocytosis: Secondary to ileus -Hyponatremia -Severe left renal artery stenosis as noted on CT -hypokalemia, replaced and improved -hypomagnesemia, replaced and improved -Hypoalbuminemia with severe protein calorie malnutrition -GERD -hypertension -hyperlipidemia -History of anxiety -continued ongoing nicotine dependence -No code Discharge disposition Patient is being discharged in a stable condition with guarded prognosis to home. She will continue with [facility] hospice on discharge. Patient will follow-up with Dr. Pereira upon discharge. Patient also instructed to follow-up with cardiology outpatient in 2 weeks and will continue with weekly palliative paracentesis for chronic ascites. Patient instructed to continue with full liquid diet. Total time taken is greater than 35 minutes. Hospital course This is a 61-year-old female who was recently admitted with nausea and vomiting found to be extremely dehydrated and being closely monitored. Patient was actively receiving chemotherapy for stage IV pancreatic cancer with metastasis with oncology following closely. Patient was having increasing nausea and vomiting with possible ileus and recently had NG tube placed for continued distention and showed some improvement and NG tube was removed and patient was started on full liquids and recommended to continue full liquids in the outpatient setting. Family daughter and patient met with [facility] and are agreeable to hospice in the home setting as patient states she does not want to continue with chemotherapy. Patient will continue with oral antibiotics and full liquid diet and will follow-up with cardiology and oncology as needed. Instructed to follow-up with primary care provider on discharge. Patient continue with current pain regimen along with laxatives and encouraged oral intake as tolerated. Currently no reports of chest pain, shortness of breath, or palpitations. Patient is afebrile. No reports of vomiting with chronic nausea and hiccups noted. To continue with Thorazine for the hiccups as well. Patient also receives weekly palliative paracentesis for continued abdominal ascites most likely secondary to cancer with metastasis and will continue for palliative purposes. Prognosis remains poor and guarded and again patient will continue with [facility] hospice in the home setting. On exam vital signs are stable. Cardio S1, S2 are muffled. Respiratory shows diminished breath sounds at the bases with no wheezing or rhonchi noted. Abdomen is soft and nontender. Nervous system shows no focal deficits. Please refer to medication reconciliation sheet for a list of medications. Patient Condition at Discharge: Poor Plan - Discharge Summary Discharge Rx Participant: Yes New Discharge Prescriptions: New Dicyclomine [Bentyl] 20 mg PO BID PRN #30 tab PRN Reason: Dyspepsia bisacodyL [Dulcolax] 10 mg RECTAL DAILY #10 supp Pantoprazole [Protonix] 40 mg PO AC-BRKFST 30 Days #30 tablet. Metoclopramide HCl [Reglan] 10 mg PO Q8H PRN #30 tablet PRN Reason: Nausea chlorproMAZINE [Thorazine] 25 mg PO Q6HR PRN #12 tab PRN Reason: Moderate Agitation Continue Metoprolol Succinate (ER) [Toprol XL] 25 mg PO DAILY HYDROcodone/APAP 5-325MG [[place] 5-325] 1 tab PO Q6HR PRN PRN Reason: Pain Omeprazole 20 mg PO DAILY OLANZapine [ZyPREXA] 5 mg PO HS Ondansetron [Zofran] 4 mg PO Q4H PRN PRN Reason: Nausea And Vomiting ALPRAZolam [Xanax] 0.5 mg PO TID PRN PRN Reason: Anxiety Discharge Medication List Metoprolol Succinate (ER) [Toprol XL] 25 mg PO DAILY 07/26/20 [History] OLANZapine [ZyPREXA] 5 mg PO HS 01/09/21 [History] Omeprazole 20 mg PO DAILY 01/09/21 [History] Ondansetron [Zofran] 4 mg PO Q4H PRN 01/09/21 [History] HYDROcodone/APAP 5-325MG [[place] 5-325] 1 tab PO Q6HR PRN 02/06/21 [History] ALPRAZolam [Xanax] 0.5 mg PO TID PRN 04/06/21 [History] Dicyclomine [Bentyl] 20 mg PO BID PRN #30 tab 04/14/21 [Rx] Metoclopramide HCl [Reglan] 10 mg PO Q8H PRN #30 tablet 04/14/21 [Rx] Pantoprazole [Protonix] 40 mg PO AC-BRKFST 30 Days #30 tablet. 04/14/21 [Rx] bisacodyL [Dulcolax] 10 mg RECTAL DAILY #10 supp 04/14/21 [Rx] chlorproMAZINE [Thorazine] 25 mg PO Q6HR PRN #12 tab 04/14/21 [Rx] Follow up Appointment(s)/Referral(s): Oscar Pereira MD [Primary Care Provider] - 1-2 days Eric Hardy MD [STAFF PHYSICIAN] - 2 Weeks Patient Instructions/Handouts: Hospice (DC), Hospice Care (GEN), Acute Nausea and Vomiting (DC) Activity/Diet/Wound Care/Special Instructions: Activity Limited until follow-up Patient is signing on with [facility] hospice Follow-up outpatient oncology Follow up with primary care provider Continue current diet as tolerated Continue with palliative paracentesis as scheduled on Fridays Discharge Disposition: HOME WITH HOSPICE
--- NOTE | 2021-04-16 17:28 | CDI ---
Documentation Clarification Form Date: 04/16/2021 05:20:04 PM From: Guanako Parker Admit Date: 04/06/2021 01:54:00 PM Patient Name: Mckayla Concepcion Visit Number: [id number] Discharge Date: 04/14/2021 01:47:00 PM ATTENTION: The Clinical Documentation Specialists (CDI) and [facility] Coding Staff appreciate your assistance in clarifying documentation. Please respond to the clarification below the line at the bottom and electronically sign. The CDI & [facility] Coding staff will review the response and follow-up if needed. Please note: Queries are made part of the Legal Health Record. If you have any questions, please contact the author of this message via ITS. Dr. Latoya Montoya The patient presented with the following clinical indicators. Additional clarification regarding the etiology/cause of the clinical indicators is requested. H+P states R/O sepsis. Progress notes 04/07-04/11 indicate possible sepsis. Sepsis is not mentioned in the discharge summary. Need to determine if it was ruled out. History/Risk Factors: on chemotherapy, pancreatic cancer with mets, Clinical Indicators: WBC: 18 Lactic acid: N/A Blood cultures: N/A Vitals signs: BP 120/86, pulse 107, resp 18, temp 97.9 Treatment: ID Consult: N/A In your professional opinion, please clarify if these findings signify one of the following conditions: [ ] Sepsis POA [ ] Sepsis, Not POA [ ] Sepsis ruled out [ ] Severe Sepsis with organ failure [ ] Septic Shock [ ] SIRS, without underlying infectious process [ ] Other, please specify [ ] Unable to determine SIRS Criteria: 2 or more of the following may indicate SIRS -Temperature < 96.8F (36C) or > 101.0F (38.3C) -Heart Rate > 90 bpm -Respiratory Rate > 20 breaths/min or PaCO2 < 32 mmHg -White Blood Cell Count > 12,000 or < 4,000 cells/mm3 or > 10% bands Sepsis POA MTDD
--- NOTE | 2021-04-22 08:06 | US ---
Ultrasound-guided paracentesis. DATE OF EXAM: 04/11/2021 CLINICAL HISTORY: Ascites The procedure was discussed with the patient. The risks, complications, benefits, and alternatives we re discussed and any questions were answered. Informed consent was obtained. The patient was placed s upine on the ultrasound table and prepped and draped in the usual sterile fashion. All elements of maximal barrier technique were utilized. Under ultrasound guidance, access into the right lower quadrant was obtained, via the paracentesis catheter system and direct ultrasound guidanc e. Approximately 4 liters of straw-colored fluid was removed. The patient was stable throughout the proc edure and remained stable upon discharge from Department of Radiology. IMPRESSION: Successful paracentesis under ultrasound guidance.
== END 2021-04-14 13:47 | disposition hospice, home (50) | DRG 871 ==
LOC: EC 11:56 → 5NMEDONC 13:54
PROVIDERS: ADMIT Hospitalist; ATTEND Hospitalist
PROC: 0D9670Z Drainage of Stomach with Drainage Device, Via Natural or Artificial Opening (ICD-10-PCS; principal; 2021-04-13)
DX: A41.9 Sepsis, unspecified organism (principal); E43 Unspecified severe protein-calorie malnutrition; K56.7 Ileus, unspecified; E87.1 Hypo-osmolality and hyponatremia; C25.9 Malignant neoplasm of pancreas, unspecified; E87.0 Hyperosmolality and hypernatremia; Z68.1 Body mass index [BMI] 19.9 or less, adult; R18.8 Other ascites; C78.6 Secondary malignant neoplasm of retroperitoneum and peritoneum; Z92.21 Personal history of antineoplastic chemotherapy; E78.5 Hyperlipidemia, unspecified; I10 Essential (primary) hypertension; K21.9 Gastro-esophageal reflux disease without esophagitis; Z86.010 Personal history of colon polyps; F17.200 Nicotine dependence, unspecified, uncomplicated; Z80.0 Family history of malignant neoplasm of digestive organs; E87.6 Hypokalemia; E83.42 Hypomagnesemia; E86.0 Dehydration; Z20.822 Contact with and (suspected) exposure to COVID-19; D72.829 Elevated white blood cell count, unspecified; I70.8 Atherosclerosis of other arteries; I70.1 Atherosclerosis of renal artery; F41.9 Anxiety disorder, unspecified; I27.20 Pulmonary hypertension, unspecified; Z87.19 Personal history of other diseases of the digestive system
CPT/HCPCS: 36415; 49083; 71046; 74019; 74178; 80048; 80053; 81001; 83605; 83735; 85025; 85610; 85730; 87040; 87635; 93005; 96361; 96374; 96375; 99285